=== PATIENT | female | born 1970 | race Caucasian/White ===

== ENCOUNTER 2016-07-13 13:55 | Inpatient (IN) ==
[2016-07-13] MEDS ORDERED: Aspirin 81 MG TAB.CHEW PO ONE (13:57)
[2016-07-13] MEDS ORDERED: *HR* Heparin 5,000 UNIT/ML VIAL IVP PRN (13:57)
[2016-07-13] MEDS ORDERED: *HR* Ticagrelor 90 MG TABLET ONE (13:58)
[2016-07-13] MEDS ORDERED: *HR* Ticagrelor 90 MG TABLET PO ONE (13:59)
[2016-07-13] MEDS ORDERED: *HR* Heparin 5,000 UNIT/ML VIAL ONE (13:59)
[2016-07-13] MEDS ORDERED: Heparin 25,000 UNIT/500 ML D5W 25,000 UNIT/500 ML MLS IVC SCH (14:00)
[2016-07-13] MEDS ORDERED: Aspirin 81 MG TAB.CHEW ONE (14:00)
[2016-07-13] MEDS ORDERED: 0.9 % Sodium Chloride 1,000 ML ONE ×3 (14:00→14:41)
--- NOTE | 2016-07-13 14:02 | Emergency Department Note ---
Disposition Clinical Impression: ST elevation myocardial infarction (STEMI) Qualifiers: Involved coronary artery: unspecified coronary artery Qualified Code(s): I21.3 - ST elevation (STEMI) myocardial infarction of unspecified site Disposition: Admitted As Inpatient Condition: Critical Forms: ED Satisfaction Letter Time of Disposition: 14:05 Chest Pain HPI - General Chief Complaint: ED Chest Pain Stated Complaint: Chest pain Time Seen by Provider: 07/13/16 13:56 Source: patient, EMS Mode of arrival: EMS Limitations: no limitations Vital Signs Reviewed: Yes Nursing Notes Reviewed: Yes - History of Present Illness HPI Narrative: 46-year-old female who comes in complaining of about a 1 hour history of chest pain. EKG was transmitted to [facility] in they diverted the patient here due to inferior changes. EKG sent by [facility] shows ST segment elevation in II, III, and F aVF consistent with inferior SC. Auscultation was obtained with Dr. Car prior to the patient's arrival. STEMI activated at 1349 PM. 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 Duration: constant Onset: during rest Pain Location: substernal, left chest Severity: moderate Quality: tightness, aching Pain Radiation: none Improves with: nothing Worsens with: nothing Context: recent illness Associated symptoms: Reports: nausea, vomiting - Related Data Home Medications Medication Instructions Recorded Confirmed Buprenorphine HCl/Naloxone HCl 1 each SL BID 04/14/15 04/29/16 [Suboxone 8 mg-2 mg Sl Film] Metformin [Glucophage] 500 mg PO BID 06/27/15 04/29/16 Bupropion HCl [Wellbutrin Xl] 300 mg PO QAM 11/22/15 04/29/16 Fluticasone/Salmeterol [Advair 1 each IH BID 11/22/15 04/29/16 100-50 Diskus] Insulin ASPART [NovoLOG] 35 unit SQ TIDWM 11/22/15 04/29/16 Lidocaine [Topicaine] 113 gm TP QAM 11/22/15 04/29/16 Lisinopril [Zestril] 10 mg PO DAILY 11/22/15 04/29/16 Pregabalin [Lyrica] 300 mg PO TID 11/22/15 04/29/16 Previous Rx's Medication Instructions Recorded Acetaminophen [Tylenol] 650 mg PO Q6HR PRN #20 tablet 04/29/16 Allergies Allergy/AdvReac Type Severity Reaction Status Date / Time Iodinated Contrast Media - Allergy Hives Verified 04/29/16 10:48 Oral and [Iodinated Contrast Media - IV Dye] pioglitazone [From Actos] Allergy See Verified 04/29/16 10:48 Comments Sulfa (Sulfonamide Allergy Hives Verified 04/29/16 10:48 Antibiotics) sulfamethoxazole Allergy Itching Verified 04/29/16 10:48 [From Bactrim] trimethoprim [From Bactrim] Allergy Itching Verified 04/29/16 10:48 NSAIDS (Non-Steroidal AdvReac See Verified 04/29/16 10:49 Anti-Inflamma Comments Constitutional: Denies: fever, chills, weakness, weight change Eyes: Denies: eye pain, eye discharge, vision change ENT ED: Denies: ear pain, throat pain, dental pain, hearing loss, epistaxis, congestion, dysphagia Cardiovascular: Reports: chest pain. Denies: palpitations, dyspnea on exertion , edema, syncope Respiratory: Denies: cough, dyspnea, wheezes, hemoptysis, stridor Gastrointestinal: Denies: abdominal pain, nausea, vomiting, diarrhea, constipation, hematemesis, melena, hematochezia Genitourinary: Denies: dysuria, frequency, hematuria, discharge Musculoskeletal: Denies: back pain, neck pain, arthralgia, myalgia Integumentary: Denies: rash, abrasion, lesions Neurological: Denies: headache, weakness, numbness, paresthesias, confusion, abnormal gait, vertigo Psychiatric: Denies: anxiety, depression, suicidal thoughts, homicidal thoughts , auditory hallucinations, visual hallucinations Endocrine: Denies: fatigue Hematological/Lymphatic: Denies: easy bleeding, easy bruising Allergic/Immunologic: Denies: facial swelling, urticaria Chest Pain PMH - Past Medical History Medical history: Reports: non-contributory Surgical history: Reports: other Psychiatric history: Reports: depression 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: Reports: endometriosis, polycystic ovary syndrome - Social History Smoking Status: Current every day smoker Alcohol use: Reports: none Drug use: Reports: none Physical Exam - General Limitations: no limitations General appearance: alert, in no apparent distress - Head Head exam: atraumatic, normocephalic, normal inspection - Eye Eye exam: Present: normal appearance, PERRL, EOMI - Expanded Eye Exam Pupils: Left: reactive - ENT ENT exam: normal exam, normal oropharynx, mucous membranes moist - Expanded ENT Exam External ear exam: Present: normal external inspection Mouth exam: Present: normal external inspection Teeth exam: Present: normal inspection Throat exam: Present: normal inspection - Neck Neck exam: Present: normal inspection, full ROM, trachea midline - Chest Chest inspection: Present: normal inspection, symmetric chest wall rise - Respiratory Respiratory exam: Present: normal lung sounds bilaterally - Cardiovascular Cardiovascular exam: Present: regular rate, normal rhythm, normal heart sounds - Abdominal Exam Abdominal exam: Present: soft, Non-Tender. Absent: tenderness, distention, guarding, rebound, rigidity - Extremities Exam Extremities exam: Present: normal inspection, full ROM. Absent: tenderness, pedal edema - Expanded Upper Extremity Exam Shoulder exam: Present: normal inspection, full ROM Arm exam: Present: normal inspection, full ROM Elbow exam: Present: normal inspection, full ROM Forearm/Wrist exam: Present: normal inspection, full ROM Hand exam: Present: normal inspection, full ROM Vascular exam: Normal: capillary refill, radial pulse - Expanded Lower Extremity Exam Neurovascular/Tendon exam: Absent: motor deficit, sensory deficit, tendon deficit - Back Exam Back exam: Present: normal inspection, full ROM. Absent: tenderness - Neurological Exam Neurological exam: Present: alert, oriented X3 - Expanded Neurological Exam Patient oriented to: Present: person, place, time Coma Scale Eye Opening: Spontaneous Coma Scale Motor Response: Obeys Commands Coma Scale Verbal Response: Oriented Coma Scale Total: 15 - Psychiatric Psychiatric exam: Present: normal affect, normal mood - Skin Skin exam: Present: warm, dry, intact, normal color Course - Consultations Consultation #1: Test with Dr. Lisa Car interventionalists, STEMI activated at 1349. Time: 14:05 Chest Pain - EKG Data EKG attestation: Yes I reviewed and interpreted this EKG. EKG shows normal: sinus rhythm Rate: normal Rhythm: NSR ST segment elevation in: II, III, aVL Interpretation: acute SC (Inferior SC) Heart Score - Score History: Highly Suspicious EKG: Significant ST-Depression Age: 45-65 Risk Factors: Equal/Greater than 3 risk factor or history of atherosclerotic disease Troponin: Less than normal limit HEART Score Total: 7 Critical Care Time Critical Care Time: Yes Total Critical Care Time: 30 Attestation: The high probability of a clinically significant, sudden or life threatening deterioration of the [cardiovascular] system(s) required my full and direct attention, intervention and personal management. The aggregate critical care time was [30] minutes. This time is in addition to time spent performing reported procedures but includes the following: [x] Data Review and interpretation [x] Patient assessment and monitoring of vital signs [x] Documentation [x] Medication orders and management
[2016-07-13 14:09] LABS: Basophils % 0.2 %; Eosinophils # 0.2 K/mcL (0.0-0.6); Eosinophils % 1.7 %; Hematocrit 42.4 % (35.3-44.9); Hemoglobin 13.7 g/dL (11.5-15.4); Immature Granulocytes % 0.4 % (0-4); Lymphocytes # 0.2 K/mcL (0.6-4.6); Lymphocytes % 2.2 %; Mean Corpuscular HGB Conc 32.3 g/dL (31.6-35.5); Mean Corpuscular Volume 86.7 fL (83.0-100.0); Mean Platelet Volume 10.9 fL (9.4-12.4); Monocytes # 0.2 K/mcL (0.0-1.3); Monocytes % 1.6 %; Neutrophils # 9.6 K/mcL (1.6-8.9); Platelet Count 180 K/mcL (140-400); Red Blood Count 4.89 M/mcL (3.82-4.97); Red Cell Distribution Width 13.5 % (11.5-14.5); Segmented Neutrophils % 93.9 %
[2016-07-13] MEDS ORDERED: *HR* Midazolam HCl 5 MG/5 ML VIAL IVP ONE (14:11)
[2016-07-13] MEDS ORDERED: Heparin 1,000 UNITS/500 mL NS 500 ML ONE (14:12)
[2016-07-13] MEDS ORDERED: *HR* FentaNYL (PF) 250 MCG/5 ML VIAL ONE (14:12)
[2016-07-13] MEDS ORDERED: Nitroglycerin 1,000 MCG/10 ML VIAL IV ONE (14:12)
[2016-07-13] MEDS ORDERED: *HR* Heparin 10,000 UNIT/10 ML VIAL ONE (14:12)
[2016-07-13 14:19] LABS: INR 1.1; Prothrombin Time 12.1 Seconds (9.4-12.1)
[2016-07-13 14:22] LABS: Activated Partial Thrombo Time 30.3 Seconds (26.0-36.0); Calcium 8.3 mg/dL (8.6-10.8); Potassium 4.6 mEq/L (3.5-4.5)
[2016-07-13] MEDS ORDERED: Ondansetron 4 MG/2 ML VIAL IVP ONE (14:29)
[2016-07-13] MEDS ORDERED: methylPREDNISolone 125 MG/2 ML VIAL ONE (14:31)
--- NOTE | 2016-07-13 15:46 | Invasive Diagnostic Lab Proc ---
Name: Sandi Calderón Date of Study: 07/13/2016 Date: 1970 Ht: 66.9in Medical Record#: [id number] Age: 46 Wt: 359.35lb Gender: Female BSA: 2.59 Order #: [id number] BMI: 56.4 Physicians Procedure Physician: Lisa Car MD, [facility] Referring MD: Referring MD: Staff Name Position Time In Alton Herrera RN Monitor 02:52 PM Vero Christensen RT (R) Scrub 02:52 PM Theron Jackson RN Nut Roaster Helper 02:52 PM Indications Indication STEMI Procedures Performed Procedure L HRT ARTERY/VENTRICLE ANGIO PRQ CARD REVASC NJ 1 VSL Pre-Procedure Checklist Informed consent is complete signed and on chart. H\\T\\P is on chart. ID band is on and ID verified with patient. Pt not NPO for procedure and MD aware. The procedure was described for the patient and questions were answered. Blood Pressure: 96/52 ECG is on chart. Rhythm: Sinus Tachycardia Plan of Care Patient will tolerate the procedure without complications. Adequate level of comfort will be maintained. Hemodynamics will remain stable Patient will recover from procedure without complications. Respiratory function will be maintained. Cardiac rhythm will remain stable. Patient temperature will be maintained. Patient and/or family have verbalized understanding of the procedure. Patient Education Chief Complaint/Reason for Test: Cardiac Cath Developmental Category: Adult (18-64 years) Developmentally Appropriate for Age: Yes Learning Barriers: None Education Needs: Procedure Education Method: Verbal Information Taught: Cardiac Cath Educational Evaluation: Able to repeat information Intravenous Access Time IV Size Location DC'd Fluid/Drip Rate Units RN 02:22 PM 18g 1 1/4" Patent On Arrival Lt Antecubital 0.9NaCl 25 ml/hr Theron Jackson RN 02:22 PM 18g 1 1/4" Patent On Arrival Rt Antecubital Theron Jackson RN Allergies BACTRIM Sulfa (Sulfonamide Antibiotics) pioglitazone Iodinated Contrast Media - IV Dye NSAIDS (Non-Steroidal Anti-Inflamma Iodinated Contrast Media - Oral and Vital Signs Time BP (mmHg) HR (bpm) O2 Sat. RR (bpm) LOC / 101 95 % 18 5 = Fully awake and oriented or at pre-proc level 02:53 PM / % 5 = Fully awake and oriented or at pre-proc level 02:53 PM / % 4 = Oriented but drowsy 03:08 PM / % 5 = Fully awake and oriented or at pre-proc level 02:55 PM 96 / 52 91 93 % 8 03:00 PM 107 / 63 90 100 % 21 03:05 PM 114 / 58 85 100 % 21 03:16 PM 133 / 72 91 100 % 20 03:21 PM 95 / 55 92 100 % 26 Procedural Medications Time Medication Dose Units Method Given By 02:52 PM Oxygen 4 L/min nasal cannula Theron Jackson RN 02:52 PM Versed 1 mg Intravenous [place], Theron VAZQUEZ 02:52 PM Fentanyl 25 mcg Intravenous [place], Theron RN 02:52 PM Benadryl 25 mg Intravenous [place], Theron VAZQUEZ 02:52 PM Lidocaine 2% 18 ml Subcutaneous Lisa Car MD, FAC 03:00 PM Heparin 3000 units Intravenous [place]vin[place], Theron VAZQUEZ 03:04 PM Fentanyl 25 mcg Intravenous [place], Theron VAZQUEZ 03:07 PM Nitroglycerin 200 mcg Intracoronary Lisa Car MD, FACC 03:10 PM Fentanyl 25 mcg Intravenous [place], Theron VAZQUEZ 03:13 PM Reopro Bolus: 20.6 ml Intravenous SrinathornTheron cazares RN ASA Classification: Emergent Procedure: ASA score is assumed Leon Score Preprocedure Postprocedure Activity 2- Moves 4 extremities sustained head lift Activity 2- Moves 4 extremities sustained head lift Circulation 2- SBP +/= 20 points of pre-anesthetic level Circulation 2- SBP +/= 20 points of pre-anesthetic level Consciousness 2- Awake and alert oriented x 3 Consciousness 2- Awake and alert oriented x 3 O2 Saturation 2- Able to maintain O2 satruation of 92% on room air O2 Saturation 2- Able to maintain O2 satruation of 92% on room air Respiratory 2- Able to deep breathe and cough well Respiratory 2- Able to deep breathe and cough well Total Score 10 Total Score 10 Contrast Agent: Isovue Diagnostic Contrast: 147 ml Total Contrast: 147 ml Fluoro Dose: 867 mGy Activated Clotting Time Time Seconds to Clot 02:59 PM 152 03:00 PM 152 03:16 PM 179 Procedure Log Time Note Enter By 02:26 PM CathStat 02:42 PM Pt arrived to medical lab assistant 2 at 14:42 csmith 02:49 PM Vitals capture started with the following parameters, Patient=Adult, Interval=5 min, Initial Adowctpw=142 mmHg, Deflation Rate=5 mmHg, Cuff placed on Left Arm 02:51 PM Recorded ECG: HR=91 Condition=Condition 1 02:51 PM NIBP STAT measurement started. 02:51 PM Vitals capture stopped. 02:52 PM Alton Herrera RN Position: Monitor Time in: 14:52 csmith 02:52 PM Vero Christensen RT (R) Position: Scrub Time in: : csmith 02:52 PM Theron Jackson RN Position: Nut Roaster Helper Time in: : csmith 02:52 PM Patient charges- Angio tray pack, Navilyst 3mm J, Pulse Oximetry and ACIST tubing and transducer csmith 02:52 PM Hair removed from procedure site in holding area using clippers. Right groin prepped with Chloraprep by Alton Herrera RN, safety strap applied then patient was draped. Skin intact. csmith 02:52 PM Meet and greet completed csmith 02:52 PM Sign in performed according to hospital policy. csmith 02:52 PM Procedure start 14:52 csmith 02:52 PM Time: 14:52 Oxygen on at 4 L/min per nasal cannula by Theron Jackson RN csmith 02:52 PM Time: 14:52 Versed 1 mg Intravenous Given by Theron Jackson RN csmith 02:52 PM Time: 14:52 Fentanyl 25 mcg Intravenous Given by Theron Jackson RN csmith 02:52 PM Time: 14:52 Benadryl 25 mg Intravenous Given by Theron Jackson RN csmith 02:52 PM Time: 14:52 18 ml Lidocaine 2% to right groin Subcutaneous Given by Lisa Car MD, [facility] csmith 02:53 PM Time: 14:53 Patient comfortable and pain free: Yes csmith 02:53 PM Time: 14:53LOC: 5 = Fully awake and oriented or at pre-proc level csmith 02:54 PM Access obtained by percutaneous puncture. 6Fr 10cm Terumo Harrison sheath placed in right Femoral artery. [id number] csmith 02:54 PM 0.035 145cm Navilyst 3mmJ wire [id number] csmith 02:54 PM Vitals capture started with the following parameters, Patient=Adult, Interval=5 min, Initial Pkrzqbim=297 mmHg, Deflation Rate=5 mmHg, Cuff placed on Left Arm 02:54 PM Pressure channel 1 zeroed. 02:55 PM HR=91 bpm, NIBP=96/52 mmhg, SpO2=93.0 %, Resp=8 B/min, Comment=sr s/st elevation 02:57 PM LCA angiography performed in multiple views. csmith 02:57 PM Catheter removed csmith 02:57 PM 6Fr JR 4 Runway guide catheter was used to cannulate the PCI vessel successfully. reused? No csmith 02:58 PM Pressure channel 1 zeroed. 02:59 PM Recorded Pressure: Ao, HR=90, Condition=Condition 1 (Aorta) Ao 96/54/70 02:59 PM RCA angiography performed in multiple views. csmith 02:59 PM Lesion found in Mid RCA. Pre Stenosis: 99 Pre VIOLET Flow: 2: Partial Flow/Perfusion (> 1 but < 3) csmith 02:59 PM At 14:59 the ACT was 152 seconds. csmith 03:00 PM HR=90 bpm, NFVT=040/63 mmhg, QzW6=804.0 %, Resp=21 B/min, Comment=sr s/st elevation 03:00 PM Time: 15:00 Heparin 3000 units Intravenous Given by Theron Jackson RN IVP csmith 03:01 PM Coronary Dominance: right csmith 03:01 PM 2.5 mm x 15 mm Emerge Monorail balloon across target lesion- successful. reused? No csmith 03:02 PM Balloon inflated @ 10 zane for 20 seconds csmith 03:04 PM Recorded Pressure: Ao, HR=91, Condition=Condition 1 (Aorta) Ao 99/55/71 03:04 PM Time: 15:04 Fentanyl 25 mcg Intravenous Given by Theron Jackson RN csmith 03:04 PM Balloon catheter removed intact. csmith 03:04 PM 3.5mm x 38mm Synergy bioabsorbable stent across target lesion- successful Lot #[id number] csmith 03:05 PM HR=85 bpm, YHPZ=096/58 mmhg, MqF1=253.0 %, Resp=21 B/min, Comment=sr s/st elevation 03:05 PM Stent deployed @ 12 zane for 30 seconds csmith 03:06 PM Stent balloon reinflated @ 16 zane for 20 seconds csmith 03:07 PM Time: 15:07 Nitroglycerin 200 mcg Intracoronary Given by Lisa Car MD, FACC csmith 03:08 PM Time: 14:53LOC: 4 = Oriented but drowsy csmith 03:08 PM Time: 14:53 Patient comfortable and pain free: Yes csmith 03:08 PM Stent delivery system removed intact. csmith 03:09 PM Wire removed intact. csmith 03:10 PM 5Fr Pigtail catheter inserted over the wire DNC csmith 03:10 PM Time: 15:10 Fentanyl 25 mcg Intravenous Given by Theron Jackson RN csmith 03:10 PM Vitals capture stopped. 03:10 PM Pressure channel 1 zeroed. 03:10 PM Recorded Pressure: LV, HR=92, Condition=Condition 1 (Left Ventricle) LV 86/25/27 03:11 PM Catheter selectively placed in left ventricle csmith 03:11 PM Bolus angiogram of left Ventricle complete: 8 ml/sec for a total of 24 mls csmith 03:12 PM Recorded Pressure: LV, Ao, HR=90, Condition=Condition 1 (Left Ventricle) LV 107/47/59, (Aorta) Ao 83/60/70 03:12 PM Wire removed csmith 03:12 PM Catheter removed csmith 03:13 PM Bolus angiogram of right Femoral complete: 4 ml/sec for a total of 7 mls csmith 03:13 PM act drawn and running csmith 03:14 PM Time: 15:13 Reopro Bolus: 20.6 ml Intravenous Given by Theron Jackson RN IVP csmith 03:15 PM Sheath exchanged for a 6 Fr 23 cm Cordis Ping sheath [id number] csmith 03:16 PM HR=91 bpm, DJHY=619/72 mmhg, XsO7=783.0 %, Resp=20 B/min, Comment=sr s/st elevation 03:16 PM At 15:16 the ACT was 179 seconds. csmith 03:16 PM Procedure completed at 15:16 csmith 03:17 PM Sign out completed: Radiation Dose 867 mGy Fluoro Time: 3.9 Isovue 370 - 200ml contrast 147 ml given by Lisa Car MD, [facility]. Complications: NoneCardiac Rehab Consult needed: YesConfirmed administered medications: Yes csmith 03:17 PM Isovue 370 - 200ml,1 Bottle(s) used. csmith 03:17 PM Sheath left in place to be pulled on floor/holding area csmith 03:17 PM Post ECG NSR csmith 03:17 PM Post Blood Pressure 133/72 csmith 03:21 PM HR=92 bpm, NIBP=95/55 mmhg, CzO5=292.0 %, Resp=26 B/min, Comment=sr 03:23 PM Information taught Cardiac Cath csmith 03:23 PM Education needs Responsibilities of Patient in Care csmith 03:23 PM Learning barriers :None csmith 03:23 PM Education Methods Verbal csmith 03:23 PM Education evaluation Able to repeat information csmith 03:23 PM Time: 15:08 Patient comfortable and pain free: Yes csmith 03:23 PM Time: 15:08LOC: 5 = Fully awake and oriented or at pre-proc level csmith 03:23 PM Site status No bleeding/hematoma - Rt Groin as reported by Vero Christensen RT (R) at 15:23 csmith 03:23 PM Plavix, Effient or Brilinta given No - given in ED csmith 03:23 PM Delay to floor No csmith 03:29 PM Lesion found in Proximal LAD. Pre Stenosis: 30 Pre VIOLET Flow: 3: Complete and Brisk Flow/Perfusion csmith 03:29 PM Lesion found in Proximal Circumflex. Pre Stenosis: 30 Pre VIOLET Flow: csmith 03:29 PM Lesion found in 1st Marginal. Pre Stenosis: 30 Pre VIOLET Flow: 3: Complete and [facility] Com[facility] Complication None Hemodynamics Pressures Site Systolic/A Wave Diastolic/V Wave Mean AO 96 54 70 AO 99 55 71 LV 86 25 27 LV 107 47 59 AO 83 60 70 Post Procedure Information Blood Pressure: 133/72 mmHg Rhythm: NSR Post procedural instructions were given Closure Device Time Device Success/Fail Mechanical Compression Successful Site Checks Time Location Status Staff Sheath In? Note 03:23 PM Rt Groin No bleeding/hematoma Vero Christensen RT (R) Pulses Time Site Pre-Procedure Post-Procedure Note 07/13/2016 2:42:00 PM unable to assess Updated by Alton Herrera RN on 07/13/2016 3:41:19 PM electronically signed on 07/13/2016 3:41:49 PM with status of Final
[2016-07-13] MEDS ORDERED: Nitroglycerin 0.4 MG TAB.SUBL SL PRN (15:57)
[2016-07-13] MEDS ORDERED: Dextrose Gel 15 GM PO PRN ×2 (16:05)
[2016-07-13] MEDS ORDERED: D5% in Water 1,000 ML IV PRN (16:05)
[2016-07-13] MEDS ORDERED: *HR* Dextrose 50 % in Water (Syg) 50 ML SYRINGE IVP PRN (16:05)
--- NOTE | 2016-07-13 16:29 | Cardiology History & Physical ---
Date of Encounter: 07/13/16 Time of Encounter: 15:00 Assessment and Plan (1) ST elevation myocardial infarction (STEMI) Current Visit: Yes Status: Acute Pt is currently experiencing acute inferior STEMI. Discussed with pt proceeding with emergent LHC and probable PCI. All risks/benefits discussed with pt. Agreeable to proceed. The assessment and plan as outlined above was discussed with the patient and/or family members who expressed understanding and agreement. All questions were answered. 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 Calderón is a 46 year old female with CAD, HTN, hyperlipidemia, DM, tobacco use, morbid obesity presents to [place] ED with CP. Pt in baseline state of health until 2 hours LUMBER STRAIGHTENED when had acute onset of CP, L arm pain. Associated with n/v. Contacted EMS- EKG consistent with acute inferior STEMI. Prior catheterization in 2010- nonobstructive plaque disease, normal EF. Past Med Surg Social Fam HX - Past Medical History Source: patient Medical history: coronary artery disease, diabetes, hyperlipidemia, hypertension , venous stasis Psychiatric history: depression - Past Surgical History Surgical History: no surgical history - Social History Smoking Status: Current every day smoker Smokeless Tobacco Status: No Alcohol use: none Drug use: none - Family History Mother Living Status: Age at : 69 Hx Family Cardiac Disorders: Yes (Congestive heart failure) Father Living Status: Age at : 41 Cause of : IA Medications and Allergies Buprenorphine HCl/Naloxone HCl [Suboxone 8 mg-2 mg Sl Film] 1.5 film SL BID [History] Metformin [Glucophage] 1,000 mg PO BID 06/27/15 [History] Bupropion HCl [Wellbutrin Xl] 300 mg PO QAM 11/22/15 [History] Fluticasone/Salmeterol [Advair 100-50 Diskus] 1 puff IH BID 11/22/15 [History] Insulin ASPART [NovoLOG] 35 unit SQ TIDWM 11/22/15 [History] Lisinopril [Zestril] 10 mg PO DAILY 11/22/15 [History] Pregabalin [Lyrica] 300 mg PO BID 11/22/15 [History] Albuterol Sulfate [Proair Hfa] 1 - 2 puff IH Q4H PRN 07/13/16 [History] Furosemide [Lasix] 40 mg PO DAILY PRN 07/13/16 [History] Lidocaine [Lidocaine] 1 - 4 patch TP AD 07/13/16 [History] Liraglutide [Victoza 2-Lavon] 1.2 mg SQ DAILY 07/13/16 [History] Simvastatin [Zocor] 80 mg PO DAILY 07/13/16 [History] Tiotropium [Spiriva] 18 mcg IH DAILY 07/13/16 [History] Allergies Iodinated Contrast Media - Oral and [Iodinated Contrast Media - IV Dye] Allergy (Verified 04/29/16 10:48) Hives pioglitazone [From Actos] Allergy (Verified 04/29/16 10:48) See Comments swelling all over Sulfa (Sulfonamide Antibiotics) Allergy (Verified 04/29/16 10:48) Hives sulfamethoxazole [From Bactrim] Allergy (Verified 04/29/16 10:48) Itching trimethoprim [From Bactrim] Allergy (Verified 04/29/16 10:48) Itching NSAIDS (Non-Steroidal Anti-Inflamma Adverse Reaction (Verified 04/29/16 10:49) See Comments Has kidney disease ROS unobtainable: other (emergency) All Systems Review: A 10-system review of systems was performed and is negative for pertinent findings except as documented above in the HPI. - Cardiovascular Cardiovascular: as per HPI Physical Examination Vital Signs, Last 4 Hours Temp Pulse Resp BP Pulse Ox 07/13/16 15:54 90 14 126/77 98 07/13/16 15:53 90 07/13/16 14:38 0 F L 18 112/88 General: Conversant, Other (moderate distress, morbid obesity) HEENT: Atraumatic, Normocephaly, Mucus Membranes Moist Neck: No JVD, Normal carotid pulses Cardiac: Reg Rate and Rhythm, Normal S1 and S2, No Murmur Lungs: Normal Breath Sounds, No Wheeze, Rales, Rhonchi Neuro: Alert and responsive, No focal deficits noted Abdomen: Soft, Non-Tender Skin: Other (chronic venous stasis changes of LE) Musculoskeletal: No Chest Wall Tenderness Extremities: No Clubbing, No Cyanosis, No Edema, Normal Pulses Results 07/13/16 14:00 07/13/16 14:00 - VTE Reasons for not Prescribing Prophylaxis: Medical contraindication
[2016-07-13] MEDS: Budesonide/Formoterol 80/4.5 MDI IH SCH ×2 (16:32→22:29)
--- NOTE | 2016-07-13 16:42 | Invasive Diagnostic Lab ---
Name: Sandi Calderón Date of Study: 07/13/2016 Date: 1970 Ht: 170.0 cm /66.9 in Medical Record#: [id number] Age: 46 Wt: 163. kg / 359.35 lb Account/Order#: [id number] Gender: Female BSA: 2.59 Order #: [id number] Fluoro Dose: 867 mGy BMI: 56.4 Procedure Physician: Lisa Car MD, [facility] Referring MD: Referring MD: Procedures Performed: LEFT HEART CATH PCI of Acute NE Indications: STEMI Impressions: There is severe one vessel coronary artery disease. The left ventricle is normal and has normal contractility EF 55% Patient had successful PTCA/Drug-Eluting Stent placement in the mid RCA. Recommendations: DAPT for one year minimum uninterrupted. Optimal medical therapy of patient's disease. Aggressive risk factor modification. History/Risk Factors: arthritis COPD DM severe morbid obesity HPTN hyperlipidemia depression cellulitis CKD Smoker Drug abuse Procedure Access obtained in the right Femoral artery by percutaneous puncture Patient had successful PTCA/Drug-Eluting Stent placement in the mid RCA. Complications: None Contrast: Isovue 147ml Closure Device: Mechanical Compression Hemodynamics: Pressures Site Systolic/ A Wave Diastolic/ V Wave End Diastolic/ Mean HR AO 96 54 70 90 AO 99 55 71 91 LV 86 25 27 92 LV 107 47 59 91 AO 83 60 70 89 LV Ventriculography Ejection Method: LV Gram Ejection Fraction: 55% Wall Motion: BUENROSTRO Anterobasal Normal Anterolateral Normal Apical: Normal Inferoapical Normal Inferobasal Normal Coronary Dominance: right Lesion Findings/Interventions * Left Main Coronary Artery The LMCA is angiographically free of disease. * Left Anterior Descending There is a 30% stenosis in the Proximal LAD. The lesion has a VIOLET flow of 3. * Circumflex There is a 30% stenosis in the Proximal Circumflex.The lesion has a VIOLET flow of 3. There is a 30% stenosis in the 1st Marginal. The lesion has a VIOLET flow of 3. * Right Coronary Artery There is a 36 mm long, 99% stenosis in the Mid RCA. The lesion has a VIOLET flow of 1 and has thrombus present. An intervention was performed on the Mid RCA with a final stenosis of 0%. There were no lesion complications. The final VIOLET flow was 3. Interventional Device(s) Vessel Segment Type Name Diameter (mm) Length (mm) Mid RCA balloon Emerge Monorail 2.5 15 Mid RCA bioabsorbable stent Synergy 3.5 38 Updated by Alton Herrera RN on 07/13/2016 3:38:42 PM Lisa Car MD, FAC electronically signed on 07/13/2016 4:38:37 PM with status of Final
[2016-07-13 16:44] LABS: Hemoglobin A1C 11.6 %
[2016-07-13] MEDS ORDERED: Buprenorphine Hcl/Naloxone Hcl [Suboxone 8 Mg-2 Mg S SL SCH (21:00)
[2016-07-13] MEDS: Pregabalin 75 MG CAPSULE PO SCH (21:01)
[2016-07-13] MEDS: Insulin LISPRO 300 UNITS/3 ML VIAL SQ SCH ×2 (21:03→22:40)
[2016-07-13] MEDS: Buprenorphine Hcl/Naloxone Hcl [Suboxone 8 Mg-2 Mg S SL SCH (22:38)
[2016-07-14 04:30] LABS: Basophils % 0.1 %; Hematocrit 39.2 % (35.3-44.9); Hemoglobin 12.7 g/dL (11.5-15.4); Immature Granulocytes % 0.5 % (0-4); Lymphocytes # 0.4 K/mcL (0.6-4.6); Lymphocytes % 2.9 %; Mean Corpuscular HGB Conc 32.4 g/dL (31.6-35.5); Mean Corpuscular Hemoglobin 27.9 pg (28.0-33.3); Mean Platelet Volume 11.1 fL (9.4-12.4); Monocytes # 0.3 K/mcL (0.0-1.3); Monocytes % 2.2 %; Neutrophils # 13.9 K/mcL (1.6-8.9); Platelet Count 166 K/mcL (140-400); Red Blood Count 4.56 M/mcL (3.82-4.97); Red Cell Distribution Width 13.7 % (11.5-14.5); Segmented Neutrophils % 94.3 %
[2016-07-14 07:25] LABS: Calcium 7.6 mg/dL (8.6-10.8); Chol/HDL Ratio 7.4 (0-4.9)
[2016-07-14 07:45] LABS: Thyroid Stimulating Hormone 0.833 mcIU/mL (0.350-4.840)
[2016-07-14] MEDS: BuPROPion XL (24 HR) 150 MG TABLET PO SCH (07:58)
[2016-07-14] MEDS: Aspirin 81 MG TAB.CHEW PO SCH (07:58)
[2016-07-14] MEDS: Pregabalin 75 MG CAPSULE PO SCH ×2 (07:58→21:08)
[2016-07-14] MEDS: Insulin LISPRO 300 UNITS/3 ML VIAL SQ SCH ×4 (08:02→17:16)
[2016-07-14] MEDS ORDERED: Insulin LISPRO 300 UNITS/3 ML VIAL SQ SCH ×2 (08:02→21:00)
--- NOTE | 2016-07-14 08:06 | Cardiology Progress Note ---
Date of Encounter: 07/14/16 Time of Encounter: 07:40 Assessment and Plan (1) ST elevation myocardial infarction (STEMI) Current Visit: Yes Status: Acute Presented to the ED as inferior STEMI s/p PTCA/ARSLAN to mRCA; otherwise mild, non- obstructive CAD. Peak troponin=26.74 Cardiac rehab consulted. Reports chest discomfort has nearly resolved. No issues overnight. Right groin cath site stable. May transfer out of ICU later today if electrolyte abnormalities improve. Continue DAPT (asa + plavix) for at least 1 year, uninterrupted. Continue statin. Will start betablocker and hold ACEi in light of JABARI on CKD. Post PCI guidelines discussed including restrictions and care of site. Risk factor modification emphasized including importance of smoking cessation and improved glycemic control. Anticipate discharge Friday or Friday depending on clinical course. Qualifiers: Involved coronary artery: right coronary artery Qualified Code(s): I21.11 - ST elevation (STEMI) myocardial infarction involving right coronary artery (2) DM2 (diabetes mellitus, type 2) Current Visit: Yes Status: Chronic Hx of poorly controlled DMII. Metformin on hold for at least 48 hours post LHC. Sliding scale insulin adjusted to high coverage scale. Blood glucose >600 this AM, will consult Hospitalist service for further recommendations. Qualifiers: Diabetes mellitus complication status: with unspecified complications Diabetes mellitus half-way insulin use: with half-way use Qualified Code(s) : E11.8 - Type 2 diabetes mellitus with unspecified complications; Z79.4 - senior living (current) use of insulin (3) Hyperkalemia Current Visit: Yes Status: Acute K=6.0 this AM, lab confirmed with re-draw. Will give Kayexalate x1 dose now. Start IVF at 100 mL/hr. Recheck BMP at 12 noon. (4) CKD (chronic kidney disease) stage 3, GFR 30-59 ml/min Current Visit: Yes Status: Chronic Hx of CKD-3. SCr elevated from baseline this AM. Will start IVF at 100 mL/hr. Avoid nephrotoxins. Hold ACEi for now. (5) Tobacco use Current Visit: Yes Status: Chronic Reports 2ppd smoking history. Recently less than 1ppd for the past 4-6 months. Will start nicotine patch. Smoking cessation counseling provided, time spent = 5 minutes. Discussion w patient/family: The assessment and plan as outlined above was discussed with the patient and/or family members who expressed understanding and agreement. All questions were answered. Thank you for involving us in the care of your patient. Please call with any questions. The patient was discussed and reviewed with Dr. Jude Car who agrees with the plan as stated above. Subjective Principal diagnosis: Inferior STEMI Interval history: Seen and examined this morning at bedside. Reports chest discomfort has significantly improved this AM. Echocardiogram being completed at bedside. She has no other complaints this morning. Objective Vital Signs, Last 4 Hours Temp Pulse Resp BP Pulse Ox 07/14/16 06:31 94 16 131/68 94 L 07/14/16 05:35 98.4 F 07/14/16 05:15 91 17 112/72 92 L 07/14/16 05:01 92 General: Conversant, No Apparent Distress HEENT: Atraumatic, Normocephaly, Mucus Membranes Moist Cardiac: Reg Rate and Rhythm, Normal S1 and S2 Lungs: Normal Breath Sounds Neuro: Alert and responsive Abdomen: Soft Extremities: No Edema, Normal Pulses Other: Right groin cath site stable: dressing intact. Site soft, no hematoma. +2 PT/DP pulses. Results 07/14/16 03:48 07/14/16 06:26 Lab Results 07/13/16 07/13/16 07/14/16 16:28 22:57 03:48 WBC 14.8 H Hgb 12.7 Hct 39.2 Plt Count 166 Sodium Potassium Chloride Carbon Dioxide BUN Creatinine Glucose Calcium Troponin I 2.68 H* 26.74 H* TSH 07/14/16 06:26 WBC Hgb Hct Plt Count Sodium 128 L D Potassium 6.0 H D Chloride 98 Carbon Dioxide 19 BUN 37 H D Creatinine 2.02 H Glucose 666 H* Calcium 7.6 L Troponin I TSH 0.833 Active Medications Acetaminophen (Tylenol) 500 mg PO Q6HR PRN PRN Reason: Mild Pain Stop: 01/12/17 15:58 Albuterol Sulfate (Albuterol Inhaler) 2 puff IH Q4H PRN PRN Reason: Shortness Of Breath Stop: 01/12/17 15:55 Aspirin (Aspirin) 81 mg PO DAILY [facility] Stop: 01/13/17 09:01 Last Admin: 07/14/16 07:58 Dose: 81 mg Atorvastatin Calcium (Lipitor) 80 mg PO HS [facility] Stop: 01/12/17 21:01 Last Admin: 07/13/16 21:02 Dose: 80 mg Budesonide/Formoterol Fumarate (Symbicort) 2 puff IH BIDR [facility] PRN Reason: Protocol Stop: 01/12/17 16:31 Last Admin: 07/13/16 22:29 Dose: 2 puff Bupropion HCl (Wellbutrin Xl) 300 mg PO QAM [facility] Stop: 01/13/17 09:01 Last Admin: 07/14/16 07:58 Dose: 300 mg Clopidogrel Bisulfate (Plavix) 75 mg PO DAILY [facility] Stop: 01/13/17 09:01 Last Admin: 07/14/16 07:58 Dose: 75 mg Dextrose/Water (Dextrose 50% (Syg)) 25 ml IVP AD PRN PRN Reason: Hypoglycemia Stop: 01/12/17 16:06 Glucagon (Glucagen) 1 mg IM ONCE PRN PRN Reason: Hypoglycemia Stop: 01/12/17 16:06 Glucose (Gluctose) 15 gm PO ONCE PRN PRN Reason: Hypoglycemia Stop: 01/12/17 16:06 Glucose (Gluctose) 30 gm PO ONCE PRN PRN Reason: Hypoglycemia Stop: 01/12/17 16:06 Dextrose (Dextrose 5%) 1,000 mls @ 100 mls/hr IV CONT PRN PRN Reason: HYPOGLYCEMIA Stop: 01/12/17 16:06 Sodium Chloride (0.9 % Sodium Chloride) 1,000 mls @ 100 mls/hr IVC .Q10H [facility] Stop: 01/13/17 08:16 Insulin Human Lispro (Humalog) 35 units SQ TIDWM [facility] Stop: 01/12/17 17:01 Last Admin: 07/14/16 08:02 Dose: 35 units Insulin Human Lispro (Humalog) 0 units SQ TIDAC [facility] PRN Reason: Protocol Stop: 01/12/17 16:31 Lidocaine HCl (Lidoderm 5% Patch) 1 each TP AD [facility] Stop: 01/12/17 16:01 Last Admin: 07/13/16 20:59 Dose: 1 each Lisinopril (Zestril) 10 mg PO DAILY [facility] PRN Reason: Protocol Stop: 01/13/17 09:01 Last Admin: 07/14/16 07:58 Dose: 10 mg Nitroglycerin (Nitroglycerin) 0.4 mg SL Q5MIN PRN PRN Reason: Chest Pain Stop: 01/12/17 15:58 Pharmacy Profile Note (Patient Taking Own Medication) 1.2 each SQ DAILY [facility] Stop: 01/13/17 09:01 Pharmacy Profile Note (Patient Taking Own Medication) 1 each SL TID [facility] Stop: 01/12/17 21:01 Last Admin: 07/13/16 22:38 Dose: 1 each Pregabalin (Lyrica) 300 mg PO BID [facility] Stop: 01/12/17 21:01 Last Admin: 07/14/16 07:58 Dose: 300 mg Sodium Polystyrene Sulfonate (Kayexalate) 30 gm PO ONCE ONE Stop: 07/14/16 08:15 Tiotropium [place] (Spiriva) 18 mcg IH DAILY [facility] PRN Reason: Protocol Stop: 01/13/17 09:01 - Imaging and Cardiology Chest Xray: report reviewed Echo: pending Cardiac cath: report reviewed Other Results: 12 hour tele: avg HR=91 SR. - EKG Interpretation EKG results cardiology: personally reviewed - VTE Reasons for not Prescribing Prophylaxis: Medical contraindication Consult Discharge Plan - Plan Referrals: NO,PCP [Primary Care Provider] -
[2016-07-14] MEDS ORDERED: Perflutren Lipid Microsphere 1.3 ML in 0.9 % Sodium Chloride 8.7 ML IVP ONE (08:24)
[2016-07-14] MEDS ORDERED: Perflutren Lipid Microsphere 2 ML VIAL ONE (08:25)
[2016-07-14] MEDS: Buprenorphine Hcl/Naloxone Hcl [Suboxone 8 Mg-2 Mg S SL SCH ×3 (08:29→21:32)
[2016-07-14] MEDS: Liraglutide [Victoza 2-Pak] 1.2 MG SQ SCH (08:29)
[2016-07-14] MEDS: 0.9 % Sodium Chloride 1,000 ML IVC SCH ×2 (08:38→17:19)
[2016-07-14 08:50] LABS: VBG PH 7.36 pH Units (7.32-7.42)
--- NOTE | 2016-07-14 09:23 | Internal Medicine Consult Note ---
Date of Encounter: 07/14/16 Time of Encounter: 09:15 - Assessment and Plan (1) DM2 (diabetes mellitus, type 2) Current Visit: Yes Status: Chronic Assessment and plan: Uncontrolled blood sugars. Currently greater than 400 despite receiving short- acting insulin. Will stop subcutaneous insulin products. Start IV insulin and monitor blood sugars closely. Keep nothing by mouth. Once blood sugars are less than 200, will switch over to a basal bolus regimen. She will then be placed on diabetic diet. 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 Agree with gentle hydration. Will follow renal function. Patient also having severe hyperkalemia. She has received Kayexalate for this. (3) ST elevation myocardial infarction (STEMI) Current Visit: Yes Status: Acute Assessment and plan: Status post-PCI and drug-eluting stent. Chest pain-free at this time. Continue dual antiplatelet therapy and statins and beta maxwell per cardiology recommendations. Qualifiers: Involved coronary artery: right coronary artery Qualified Code(s): I21.11 - ST elevation (STEMI) myocardial infarction involving right coronary artery Internal Medicine - CN: HPI - Data of Consult Patient: new to practice Requesting Physician: Lisa Car - Consult Narrative Reason for consult: Diabetes management History of present illness: Ms. Calderón is a 46 year old female with history of obesity, diabetes mellitus type 2, coronary artery disease, hypertension is admitted here for an acute ST elevation [place]. She underwent cardiac catheterization with PCI and drug-eluting stent to right coronary artery. She is on dual antiplatelet therapy. She does not complain of any chest pain at this time. Her diabetes has been uncontrolled and this morning her blood sugar was greater than 600. As such we were consulted to help with management. She has chronic history of type 2 diabetes since age 13. She is on metformin, Victoza and aspart insulin at home. She says her blood sugars have been better controlled these days and she is not had such high blood sugars for a long time. She denies any night sweats , chills, headache or shortness of breath. No palpitations either. She had difficulty passing urine and blood yesterday but has finally been passing urine since this morning. Past Med Surg Social Fam HX - Past Medical History Attestation: Yes The following information was validated with the patient. Source: patient Medical history: coronary artery disease, diabetes, hyperlipidemia, hypertension , venous stasis Psychiatric history: depression - Past Surgical History Surgical History: no surgical history - Social History Smoking Status: Current every day smoker Smokeless Tobacco Status: No Alcohol use: none Drug use: none - Family History Father Living Status: Age at : 41 Cause of : ME Mother Living Status: Age at : 69 Hx Family Cardiac Disorders: Yes (Congestive heart failure) Hx Family Endocrine Disorder: Yes (Diabetes, morbid obesity) All systems: reviewed and no additional remarkable complaints except as stated Review of systems: A 13 point review of systems was completed and was negative except as above. Internal Medicine - CN: Meds Buprenorphine HCl/Naloxone HCl [Suboxone 8 mg-2 mg Sl Film] 1.5 film SL BID [History] Metformin [Glucophage] 1,000 mg PO BID 06/27/15 [History] Bupropion HCl [Wellbutrin Xl] 300 mg PO QAM 11/22/15 [History] Fluticasone/Salmeterol [Advair 100-50 Diskus] 1 puff IH BID 11/22/15 [History] Insulin ASPART [NovoLOG] 35 unit SQ TIDWM 11/22/15 [History] Lisinopril [Zestril] 10 mg PO DAILY 11/22/15 [History] Pregabalin [Lyrica] 300 mg PO BID 11/22/15 [History] Albuterol Sulfate [Proair Hfa] 1 - 2 puff IH Q4H PRN 07/13/16 [History] Furosemide [Lasix] 40 mg PO DAILY PRN 07/13/16 [History] Lidocaine [Lidocaine] 1 - 4 patch TP AD 07/13/16 [History] Liraglutide [Victoza 2-Lavon] 1.2 mg SQ DAILY 07/13/16 [History] Simvastatin [Zocor] 80 mg PO DAILY 07/13/16 [History] Tiotropium [Spiriva] 18 mcg IH DAILY 07/13/16 [History] Allergies Iodinated Contrast Media - Oral and [Iodinated Contrast Media - IV Dye] Allergy (Verified 04/29/16 10:48) Hives pioglitazone [From Actos] Allergy (Verified 04/29/16 10:48) See Comments swelling all over Sulfa (Sulfonamide Antibiotics) Allergy (Verified 04/29/16 10:48) Hives sulfamethoxazole [From Bactrim] Allergy (Verified 04/29/16 10:48) Itching trimethoprim [From Bactrim] Allergy (Verified 04/29/16 10:48) Itching NSAIDS (Non-Steroidal Anti-Inflamma Adverse Reaction (Verified 04/29/16 10:49) See Comments Has kidney disease Internal Medicine - CN: Exam - Constitutional Vitals: Temp Pulse Resp BP Pulse Ox 98.6 F 89 16 123/60 95 07/14/16 08:00 07/14/16 09:00 07/14/16 09:00 07/14/16 09:00 07/14/16 09:00 General appearance IM: Present: cooperative, mild distress, A&O X 3, morbidly obese, answers questions appropriately - Head Head exam: Present: atraumatic - Eye Eye exam: Present: EOMI, PERRL - Respiratory Respiratory exam: Present: CTAB. Absent: accessory muscle use, respiratory distress, rhonchi, wheezes - Cardiovascular Cardiovascular exam IM: Present: RRR, +S1, +S2 - GI/Abdominal GI/Abdominal exam IM: Present: normal bowel sounds, soft, no peritoneal signs. Absent: guarding, tenderness - Extremities Exam Extremities exam IM: Present: full ROM, normal capillary refill, normal inspection. Absent: pedal edema - Neurological Exam Neurological exam: Present: alert, oriented X3, no focal deficits. Absent: pronater drift, facial droop, speech deficit - Skin Skin exam IM: Present: intact, normal color Internal Medicine - CN: Reslt - Labs CBC & Chem 7: 07/14/16 03:48 07/14/16 06:26 Labs: Short CBC 07/14/16 Range/Units 03:48 WBC 14.8 H (4.3-11.1) K/mcL Hgb 12.7 (11.5-15.4) g/dL Hct 39.2 (35.3-44.9) % Plt Count 166 (140-400) K/mcL Neutrophils # 13.9 H (1.6-8.9) K/mcL BMP 07/14/16 06:26 Sodium 128 L D Potassium 6.0 H D Chloride 98 Carbon Dioxide 19 BUN 37 H D Creatinine 2.02 H Glucose 666 H* Calcium 7.6 L Cardiac Enzymes 07/13/16 07/13/16 Range/Units 16:28 22:57 Troponin I 2.68 H* 26.74 H* (0-0.03) ng/mL - ABG Interpretation ABG results: PT/INR, D-dimer PT 12.1 Seconds (9.4-12.1) 07/13/16 14:00 - Impressions Impressions Chest X-Ray 07/13/16 13:57 IMPRESSION: No acute cardiopulmonary process identified. D/ / Ángel Harrison MD / Ángel Harrison MD Interpreting Provider: Ángel Harrison MD Consult Discharge Plan - Plan Referrals: NO,PCP [Primary Care Provider] - - Attending Attestation This document has been at least partially created by [employer] recognition technology by Dr. Lubin. Errors in grammar, wording or other phrases may exist. If errors are found after the documentation is signed, they will be addressed individually in the addendum section of this document when appropriate. Thank you very much for this consultation care of this patient. We will follow along with you.
[2016-07-14] MEDS ORDERED: Insulin Human Regular 100 UNIT in 0.9 % Sodium Chloride 100 ML IVC SCH (09:30)
[2016-07-14] MEDS: Budesonide/Formoterol 80/4.5 MDI IH SCH ×2 (11:15→20:32)
[2016-07-14] MEDS: Tiotropium 18 MCG inhalation IH SCH (11:16)
[2016-07-14 12:38] LABS: Calcium 7.6 mg/dL (8.6-10.8); Potassium 4.8 mEq/L (3.5-4.5)
--- NOTE | 2016-07-14 13:02 | Electrocardiograph Report ---
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
--- NOTE | 2016-07-14 13:04 | Electrocardiograph Report ---
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
--- NOTE | 2016-07-14 13:42 | ECHO - Doppler Report ---
Echo with Imaging Enhancement Agent Name: Sandi Calderón Date of Study: 07/14/2016 Date: 1970 Ht: 67.0 in Medical Record#: [id number] Age: 46 Wt: 385.0 lb Gender: Female BSA: 2.67 Order #: [id number] Location: [facility] Room #: IC04 Reading Physician: Rola Sotelo DO Tv Host: JORDY BrisenoT, [facility] Ordering Physician: Lisa Car MD, [facility] Primary Physician: None Indications: Myocardial infarction Impressions: LVEF 55%. Even with use of Definity, not all myocardial segments were well visualized. Normal left ventricular size and systolic function. There is evidence of mild diastolic dysfunction of the left ventricle. RV function is normal. Mild mitral regurgitation. No pulmonary hypertension. Left Ventricular Wall Motion: Rest Echo Findings The mid anterior septal, mid inferior lateral and basal inferior lateral brito were not visualized. All other wall segments showed normal motion. Findings: Study Quality * Technically sub-optimal due to body habitus. ECG Findings * Normal sinus rhythm. Aortic Valve * No aortic regurgitation. * Aortic valve not well visualized. * No aortic stenosis. Mitral Valve * Mild- moderate mitral annular calcification * Mildly calcified mitral valve leaflets. * No mitral stenosis. * Mild mitral regurgitation. Tricuspid Valve * Tricuspid valve not well visualized. * Trace tricuspid regurgitation. Pulmonic Valve * Pulmonic valve is not well visualized. * No pulmonic stenosis. * No pulmonic regurgitation. Pulmonary Artery * Pulmonary artery not well visualized. Left Atrium * Normal left atrial size. Right Atrium * Normal right atrial size. Left Ventricle * LVEF 55%. * Normal LV chamber size, wall thickness and function. * Definity echo contrast was used. * Mild left ventricular diastolic dysfunction. Right Ventricle * Probably mildly dilated. Normal function. Interatrial Septum * Interatrial septum not well evaluated. Pericardium * There is no pericardial effusion present. IVC * The IVC is not well evaluated. Aorta * Not well visualized. History Hypertension Diabetes Hypercholesteremia History of Smoking Years 33 Packs 1 Family History of CAD History of CAD/PTCA Myocardial Infarction Congestive Heart Failure Contrast: Definity 1.3 ml in 8.7 ml of saline 2 ml. Measurements: BP: 124/ 47 2D Normal Values IVSd: 1.10 cm 0.6 - 1.0 cm LVIDd: 5.10 cm 3.7 - 5.6 cm LVPWd: 1.20 cm 0.6 - 1.1 cm LVIDs: 4.10 cm 1.5 - 3.6 cm AO: 2.60 cm < 4.0 cm LA: 5.10 cm 2.0 - 4.0cm %FS: 25.50 cm >25 % LA volume: Mitral Valve Peak Velocity 1.50 m/sec Mean Velocity:.86 m/sec Peak Grad:9.00 mmHg Mean Grad:4.00 mmHg Pressure Time:65.00 msec Valve Area:3.38 cm2 Peak E:1.52 m/sec Peak A:1.30 m/sec E/A Ratio:1.2 Tricuspid Valve TV Regurg Peak Grad: 24.00mmHg TV Regurg Peak Paul: 2.43m/sec Updated by Rola Sotelo on 07/14/2016 1:35:41 PM electronically signed on 07/14/2016 1:36:57 PM with status of Final Wall Motion Rodriguez: 1=Normal, 2=Hypokinesis, 3=Akinesis, 4=Dyskinesis, 5=Aneurysmal, 6=Hyperkinetic, X=Not Visualized (Blank)=Missing
[2016-07-14] MEDS ORDERED: Insulin DETEMIR 100 UNIT/ML X5UNITS SQ ONE (15:41)
[2016-07-14] MEDS: Insulin DETEMIR 100 UNIT/ML X5UNITS SQ SCH ×2 (21:11→21:14)
[2016-07-15] MEDS: 0.9 % Sodium Chloride 1,000 ML IVC SCH ×3 (03:20→21:28)
[2016-07-15 08:46] LABS: Basophils % 0.2 %; Eosinophils # 0.3 K/mcL (0.0-0.6); Eosinophils % 2.7 %; Hematocrit 35.2 % (35.3-44.9); Hemoglobin 11.4 g/dL (11.5-15.4); Immature Granulocytes % 0.5 % (0-4); Lymphocytes # 2.3 K/mcL (0.6-4.6); Lymphocytes % 17.6 %; Mean Corpuscular HGB Conc 32.4 g/dL (31.6-35.5); Mean Corpuscular Hemoglobin 28.1 pg (28.0-33.3); Mean Corpuscular Volume 86.7 fL (83.0-100.0); Monocytes # 0.5 K/mcL (0.0-1.3); Monocytes % 4.1 %; Neutrophils # 9.6 K/mcL (1.6-8.9); Platelet Count 161 K/mcL (140-400); Red Blood Count 4.06 M/mcL (3.82-4.97); Red Cell Distribution Width 14.2 % (11.5-14.5); Segmented Neutrophils % 74.9 %
[2016-07-15 08:58] LABS: Calcium 7.3 mg/dL (8.6-10.8); Potassium 4.9 mEq/L (3.5-4.5)
[2016-07-15] MEDS: Insulin LISPRO 300 UNITS/3 ML VIAL SQ SCH ×4 (09:03→17:22)
[2016-07-15] MEDS: BuPROPion XL (24 HR) 150 MG TABLET PO SCH (09:15)
[2016-07-15] MEDS: Pregabalin 75 MG CAPSULE PO SCH ×2 (09:15→21:04)
[2016-07-15] MEDS: Aspirin 81 MG TAB.CHEW PO SCH (09:15)
[2016-07-15] MEDS: Buprenorphine Hcl/Naloxone Hcl [Suboxone 8 Mg-2 Mg S SL SCH (09:16)
[2016-07-15] MEDS: Liraglutide [Victoza 2-Pak] 1.2 MG SQ SCH (09:18)
[2016-07-15] MEDS: Insulin DETEMIR 100 UNIT/ML X5UNITS SQ SCH ×2 (09:19→21:07)
--- NOTE | 2016-07-15 09:44 | Cardiology Progress Note ---
Date of Encounter: 07/15/16 Time of Encounter: 09:30 Assessment and Plan (1) ST elevation myocardial infarction (STEMI) Current Visit: Yes Status: Acute Presented to the ED as inferior STEMI s/p PTCA/ARSLAN to mRCA; otherwise mild, non- obstructive CAD. Peak troponin=26.74 Cardiac rehab consulted. Reports chest discomfort has nearly resolved. No issues overnight. Right groin cath site stable. May transfer out of ICU later today if electrolyte abnormalities improve. Continue DAPT (asa + plavix) for at least 1 year, uninterrupted. Continue statin. Will start betablocker and hold ACEi in light of JABARI on CKD. Post PCI guidelines discussed including restrictions and care of site. Risk factor modification emphasized including importance of smoking cessation and improved glycemic control. Dr. Medley discussed case with Dr. James--(admitting Hospitalist) who agreed to take on Hospitalist service once transferred out of ICU. Qualifiers: Involved coronary artery: right coronary artery Qualified Code(s): I21.11 - ST elevation (STEMI) myocardial infarction involving right coronary artery (2) DM2 (diabetes mellitus, type 2) Current Visit: Yes Status: Chronic Hx of poorly controlled DMII. Metformin on hold for at least 48 hours post LHC. Required IV insulin gtt--mgmt per Hospitalist service. Appreciate Hospitalist recommendations. Qualifiers: Diabetes mellitus complication status: with kidney complications Diabetes mellitus complication detail: with chronic kidney disease Diabetes mellitus penitentiary insulin use: with penitentiary use Chronic kidney disease stage: stage 3 (moderate) Qualified Code(s): E11.22 - Type 2 diabetes mellitus with diabetic chronic kidney disease; N18.3 - Chronic kidney disease, stage 3 ( moderate); Z79.4 - group home (current) use of insulin (3) Hyperkalemia Current Visit: Yes Status: Acute Improved with Kayexalate and IVF. Nephrology consulted this AM. (4) CKD (chronic kidney disease) stage 3, GFR 30-59 ml/min Current Visit: Yes Status: Chronic Hx of CKD-3. JABARI on CKD, SCr worsening this AM; suspect multifactoral-- possible BREN and was hypotensive overnight Dr. Benitez consulted this AM for further mgmt. (5) Tobacco use Current Visit: Yes Status: Chronic Reports 2ppd smoking history. Recently less than 1ppd for the past 4-6 months. Will start nicotine patch. Smoking cessation counseling provided, time spent = 5 minutes. Discussion w patient/family: The assessment and plan as outlined above was discussed with the patient and/or family members who expressed understanding and agreement. All questions were answered. Thank you for involving us in the care of your patient. Please call with any questions. The patient was discussed and reviewed with Dr. Medley who agrees with the plan as stated above. Subjective Principal diagnosis: Inferior STEMI Interval history: Seen and examined this morning at bedside. Denies chest pain or discomfort overnight. She has no complaints this morning upon exam. Objective Vital Signs, Last 4 Hours Temp Pulse Resp BP Pulse Ox 07/15/16 09:00 74 18 117/66 97 07/15/16 07:33 71 07/15/16 07:20 98.4 F 07/15/16 07:00 71 18 105/71 07/15/16 06:00 69 18 100/59 General: Conversant, Other (obese) HEENT: Atraumatic, Normocephaly Cardiac: Reg Rate and Rhythm, Normal S1 and S2 Lungs: Normal Breath Sounds Neuro: Alert and responsive Abdomen: Soft Skin: Other (Discoloration to BLE) Extremities: Other (non-pitting BLE edema, pulses per doppler signal. ) Results 07/15/16 08:36 07/15/16 08:36 Lab Results 07/14/16 07/15/16 07/15/16 12:17 08:36 08:36 WBC 12.8 H Hgb 11.4 L Hct 35.2 L Plt Count 161 Sodium 131 L 129 L Potassium 4.8 H D 4.9 H Chloride 100 98 Carbon Dioxide 20 22 BUN 42 H 52 H Creatinine 1.95 H 2.49 H Glucose 353 H 209 H Calcium 7.6 L 7.3 L Active Medications Acetaminophen (Tylenol) 500 mg PO Q6HR PRN PRN Reason: Mild Pain Stop: 01/12/17 15:58 Albuterol Sulfate (Albuterol Inhaler) 2 puff IH Q4H PRN PRN Reason: Shortness Of Breath Stop: 01/12/17 15:55 Last Admin: 07/14/16 11:15 Dose: 2 puff Aspirin (Aspirin) 81 mg PO DAILY [facility] Stop: 01/13/17 09:01 Last Admin: 07/15/16 09:15 Dose: 81 mg Atorvastatin Calcium (Lipitor) 80 mg PO HS [facility] Stop: 01/12/17 21:01 Last Admin: 07/14/16 21:08 Dose: 80 mg Budesonide/Formoterol Fumarate (Symbicort) 2 puff IH BIDR [facility] PRN Reason: Protocol Stop: 01/12/17 16:31 Last Admin: 07/14/16 20:32 Dose: 2 puff Bupropion HCl (Wellbutrin Xl) 300 mg PO QAM [facility] Stop: 01/13/17 09:01 Last Admin: 07/15/16 09:15 Dose: 300 mg Clopidogrel Bisulfate (Plavix) 75 mg PO DAILY [facility] Stop: 01/13/17 09:01 Last Admin: 07/15/16 09:15 Dose: 75 mg Dextrose/Water (Dextrose 50% (Syg)) 25 ml IVP AD PRN PRN Reason: Hypoglycemia Stop: 01/12/17 16:06 Glucagon (Glucagen) 1 mg IM ONCE PRN PRN Reason: Hypoglycemia Stop: 01/12/17 16:06 Glucose (Gluctose) 15 gm PO ONCE PRN PRN Reason: Hypoglycemia Stop: 01/12/17 16:06 Glucose (Gluctose) 30 gm PO ONCE PRN PRN Reason: Hypoglycemia Stop: 01/12/17 16:06 Dextrose (Dextrose 5%) 1,000 mls @ 100 mls/hr IV CONT PRN PRN Reason: HYPOGLYCEMIA Stop: 01/12/17 16:06 Sodium Chloride (0.9 % Sodium Chloride) 1,000 mls @ 100 mls/hr IVC .Q10H [facility] Stop: 01/13/17 08:16 Last Admin: 07/15/16 03:20 Dose: 100 mls/hr Insulin Detemir (Levemir) 20 unit SQ BID [facility] Stop: 01/13/17 21:01 Last Admin: 07/15/16 09:19 Dose: 20 unit Insulin Human Lispro (Humalog) 14 units 0.08 units/kg (14 units) SQ TIDWM [facility] Stop: 01/13/17 17:01 Last Admin: 07/15/16 09:04 Dose: 14 units Insulin Human Lispro (Humalog) 0 units SQ TIDAC [facility] PRN Reason: Protocol Stop: 01/13/17 16:31 Last Admin: 07/15/16 09:03 Dose: 6 units Insulin Human Lispro (Humalog) 0 units SQ HS [facility] PRN Reason: Protocol Stop: 01/13/17 21:01 Last Admin: 07/14/16 21:13 Dose: Not Given Lidocaine HCl (Lidoderm 5% Patch) 2 each TP Q24H [facility] Stop: 01/13/17 21:16 Last Admin: 07/14/16 21:32 Dose: 2 each Metoprolol Tartrate (Lopressor) 12.5 mg PO BID [facility] Stop: 01/14/17 21:01 Nitroglycerin (Nitroglycerin) 0.4 mg SL Q5MIN PRN PRN Reason: Chest Pain Stop: 01/12/17 15:58 Pharmacy Profile Note (Patient Taking Own Medication) 1.2 each SQ DAILY [facility] Stop: 01/13/17 09:01 Last Admin: 07/15/16 09:18 Dose: Not Given Pharmacy Profile Note (Patient Taking Own Medication) 1 each SL TID [facility] Stop: 01/12/17 21:01 Last Admin: 07/15/16 09:16 Dose: 1 each Pregabalin (Lyrica) 300 mg PO BID [facility] Stop: 01/12/17 21:01 Last Admin: 07/15/16 09:15 Dose: 300 mg Tiotropium Paradox (Spiriva) 18 mcg IH DAILY [facility] PRN Reason: Protocol Stop: 01/13/17 09:01 Last Admin: 07/14/16 11:16 Dose: Not Given - Imaging and Cardiology Echo: report reviewed Cardiac cath: report reviewed Other Results: 12 hour tele: avg HR=74 SR. No significant event noted. - EKG Interpretation EKG results cardiology: personally reviewed - VTE Reasons for not Prescribing Prophylaxis: Medical contraindication Consult Discharge Plan - Plan Referrals: NO,PCP [Primary Care Provider] -
[2016-07-15] MEDS ORDERED: Dextrose Gel 15 GM PO PRN ×2 (10:26)
[2016-07-15] MEDS ORDERED: *HR* Dextrose 50 % in Water (Syg) 50 ML SYRINGE IVP PRN (10:26)
[2016-07-15] MEDS ORDERED: D5% in Water 1,000 ML IV PRN (10:26)
[2016-07-15] MEDS ORDERED: Nitroglycerin 0.4 MG TAB.SUBL SL PRN (10:26)
--- NOTE | 2016-07-15 10:41 | Nephrology Consult Note ---
Date of Encounter: 07/15/16 Time of Encounter: 10:39 Assessment and Plan (1) Acute kidney failure, unspecified Current Visit: Yes Status: Acute The patient has acute kidney injury superimposed on stage III chronic kidney disease. The acute kidney injuries in the setting of a recent cardiac catheterization and coronary stent placement. She likely has contrast-induced nephropathy. She currently is receiving IV fluids. She is borderline oliguric. I am going to give her 1 dose of Lasix to try and increase her urine output in the meantime continue with IV fluid administration. All further nephrotoxin should be avoided. She was cautioned to remain off all nonsteroidal anti-inflammatory medications. The patient does have a history of underlying stage III chronic kidney disease with significant proteinuria noted on her previous urinalysis. Likely she has underlying diabetic nephropathy. A new evaluation will be initiated. She will require nephrology follow-up following hospital discharge. Qualifiers: Acute renal failure type: unspecified Qualified Code(s): N17.9 - Acute kidney failure, unspecified (2) Type 2 diabetes mellitus with diabetic chronic kidney disease Current Visit: Yes Status: Acute Qualifiers: Diabetes mellitus terminal operator insulin use: with halfway use Chronic kidney disease stage: stage 3 (moderate) Qualified Code(s): E11.22 - Type 2 diabetes mellitus with diabetic chronic kidney disease; N18.3 - Chronic kidney disease, stage 3 (moderate); Z79.4 - termite helper (current) use of insulin (3) STEMI (ST elevation myocardial infarction) Current Visit: Yes Status: Acute Qualifiers: Involved coronary artery: right coronary artery Qualified Code(s): I21.11 - ST elevation (STEMI) myocardial infarction involving right coronary artery (4) CKD (chronic kidney disease) stage 3, GFR 30-59 ml/min Current Visit: Yes Status: Chronic History of Present Illness - History of Present Illness This is a 46-year-old female who was admitted several days ago with acute onset of chest pain. She was diagnosed with a STEMI. She subsequently underwent a cardiac catheterization and had a stent placed in the mid right coronary artery on July 13. She presented with a creatinine of 1.48 and a history of chronic kidney disease. Her creatinine since her cardiac catheter is increased currently up to 2.49. Patient has a history of type 2 diabetes since the age of 13. She also has a history of hypertension hypercholesterolemia. She reports that she did not do a good job taking care of her diabetes and her A1c was running around 12 more recently had improved down to 9. She had been using nonsteroidal anti-inflammatories up until about a year ago. At that time she was hospitalized at [place] and told that she had chronic kidney disease and was told to stay off nonsteroidal anti-inflammatory agents. She does have a history of proteinuria. Urinalysis back in October 2015 showed greater than 300 mg /dL of protein. She has a history of lower extremity swelling. She has a history of an asymptomatic renal calculus that was detected when she was in [place]. She denies any difficulty emptying her bladder. She denies any recurrent urinary tract infections. She denies any family history of renal disease. She does have a past history of prescription pain medication abuse. She says she has been on Suboxone for the past 7 years. She denies any IV drug use. Past Med Surg Social Fam HX - Past Medical History Medical history: coronary artery disease, diabetes, hyperlipidemia, hypertension , venous stasis Psychiatric history: depression - Past Surgical History Surgical History: no surgical history - Social History Smoking Status: Current every day smoker Smokeless Tobacco Status: No Alcohol use: none Drug use: none - Family History Father Living Status: Age at : 41 Cause of : [place] Mother Living Status: Age at : 69 Hx Family Cardiac Disorders: Yes (Congestive heart failure) Hx Family Endocrine Disorder: Yes (Diabetes, morbid obesity) Medications and Allergies Buprenorphine HCl/Naloxone HCl [Suboxone 8 mg-2 mg Sl Film] 1.5 film SL BID [History] Metformin [Glucophage] 1,000 mg PO BID 06/27/15 [History] Bupropion HCl [Wellbutrin Xl] 300 mg PO QAM 11/22/15 [History] Fluticasone/Salmeterol [Advair 100-50 Diskus] 1 puff IH BID 11/22/15 [History] Insulin ASPART [NovoLOG] 35 unit SQ TIDWM 11/22/15 [History] Lisinopril [Zestril] 10 mg PO DAILY 11/22/15 [History] Pregabalin [Lyrica] 300 mg PO BID 11/22/15 [History] Albuterol Sulfate [Proair Hfa] 1 - 2 puff IH Q4H PRN 07/13/16 [History] Furosemide [Lasix] 40 mg PO DAILY PRN 07/13/16 [History] Lidocaine [Lidocaine] 1 - 4 patch TP AD 07/13/16 [History] Liraglutide [Victoza 2-Lavon] 1.2 mg SQ DAILY 07/13/16 [History] Simvastatin [Zocor] 80 mg PO DAILY 07/13/16 [History] Tiotropium [Spiriva] 18 mcg IH DAILY 07/13/16 [History] Allergies Iodinated Contrast Media - Oral and [Iodinated Contrast Media - IV Dye] Allergy (Verified 04/29/16 10:48) Hives pioglitazone [From Actos] Allergy (Verified 04/29/16 10:48) See Comments swelling all over Sulfa (Sulfonamide Antibiotics) Allergy (Verified 04/29/16 10:48) Hives sulfamethoxazole [From Bactrim] Allergy (Verified 04/29/16 10:48) Itching trimethoprim [From Bactrim] Allergy (Verified 04/29/16 10:48) Itching NSAIDS (Non-Steroidal Anti-Inflamma Adverse Reaction (Verified 04/29/16 10:49) See Comments Has kidney disease Review of Systems Constitutional: weakness Eyes: bilateral: blurred vision (patient denies), diplopia (patient denies) Nose, mouth and throat: no dizziness, no headache(s) Cardiovascular: as per HPI, chest pain at rest, chest pain with activity, dyspnea on exertion, edema Respiratory: dyspnea on exertion Gastrointestinal: no abdominal pain, no change in bowel habits Genitourinary Female: as per HPI Musculoskeletal: no muscle weakness, no numbness Integumentary: no hirsutism, no striae Neurological: as per HPI Psychiatric: no depression, no difficulty concentrating Endocrine: as per HPI Hematologic/Lymphatic: no easy bruising, no lymphadenopathy Exam - Vital Signs Vital signs: Initial Vital Signs Temp Pulse Resp BP Pulse Ox 97.7 F 101 18 0/0 98 07/13/16 13:56 07/13/16 13:56 07/13/16 13:56 07/13/16 13:56 07/13/16 13:56 Vital Signs - Last 8 Hours Temp Pulse Resp BP Pulse Ox 07/15/16 09:00 74 18 117/66 97 07/15/16 07:33 71 07/15/16 07:20 98.4 F 07/15/16 07:00 71 18 105/71 07/15/16 06:00 69 18 100/59 07/15/16 05:00 79 20 93/67 07/15/16 04:02 77 16 98/66 07/15/16 03:31 98.0 F 72 16 102/63 97 Intake and Output 07/14/16 07/15/16 07/15/16 23:59 07:59 15:59 Intake Total 1606 / 1606 1000 / 1000 Output Total 0 / 0 200 / 200 Balance 1606 / 1606 800 / 800 Intake: IV Fluids 1006 / 1006 1000 / 1000 0.9 % Sodium Chloride 1, 1000 / 1000 1000 / 1000 000 ML @ 100 mls/hr IVC . Q10H [facility] Rx#:[id number] HumuLIN R 100 UNIT In 0. 6 / 6 9 % Sodium Chloride 100 ML @ 10 UNIT/HR 10.1 mls/ hr IVC CONT [facility] Rx#: [id number] Oral 600 / 600 0 / 0 Output: Urine 0 / 0 200 / 200 Other: Meal Dinner Percent of Meal Consumed 100% Stool Size Large Stool Consistency loose Stool Color Brown # Bowel Movements 3 Weight 174 kg Blood Glucose* 161 226 - General Appearance Exam: Patient is alert and oriented. She is in no acute distress. Vital signs are stable. Urine output is recorded as 450 mL yesterday and 200 mL so far today. Patient is morbidly obese. Neck is supple. Lungs diminished breath sounds as well as some coarse breath sounds. No wheezing rales or rhonchi. Heart regular rate and rhythm. Abdomen is obese. Bowel sounds are normal. No bruits masses, megaly or tenderness. Lower [place] shows some mild edema as well as evidence of chronic venous stasis changes. Results - Lab Results 07/15/16 08:36 07/15/16 08:36 Most recent lab results Calcium 7.3 mg/dL (8.6-10.8) L 07/15/16 08:36 Consult Discharge Plan - Plan Referrals: NO,PCP [Primary Care Provider] -
[2016-07-15] MEDS ORDERED: Furosemide 40 MG/4 ML VIAL IVP ONE (10:45)
--- NOTE | 2016-07-15 11:14 | Internal Med Progress Note ---
Date of Encounter: 07/15/16 Time of Encounter: 11:14 - Assessment and plan (1) DM2 (diabetes mellitus, type 2) Current Visit: Yes Status: Chronic Assessment and plan: Blood sugars are better but still not controlled. Will increase Levemir dosage and also increased pre meal insulin. Continue to monitor blood sugars. Qualifiers: Diabetes mellitus complication status: with kidney complications Diabetes mellitus complication detail: with chronic kidney disease Diabetes mellitus long-term insulin use: with adjunct faculty for medical terminology use Chronic kidney disease stage: stage 3 (moderate) Qualified Code(s): E11.22 - Type 2 diabetes mellitus with diabetic chronic kidney disease; N18.3 - Chronic kidney disease, stage 3 ( moderate); Z79.4 - adjunct faculty for medical terminology (current) use of insulin (2) CKD (chronic kidney disease) stage 3, GFR 30-59 ml/min Current Visit: Yes Status: Chronic (3) ST elevation myocardial infarction (STEMI) Current Visit: Yes Status: Acute Qualifiers: Involved coronary artery: right coronary artery Qualified Code(s): I21.11 - ST elevation (STEMI) myocardial infarction involving right coronary artery (4) Acute kidney failure, unspecified Current Visit: Yes Status: Suspected Assessment and plan: Patient with acute kidney injury. Likely related to contrast-induced nephropathy versus worsening chronic kidney disease. Nephrology has been consulted. Will follow recommendations. Monitor urine output. Qualifiers: Acute renal failure type: with acute tubular necrosis Qualified Code(s): N17.0 - Acute kidney failure with tubular necrosis (5) Tobacco use Current Visit: Yes Status: Chronic Assessment and plan: Counseled about cessation. Patient is currently wheezing. Will order bronchodilator nebs when necessary. - Subjective Interval history: Patient is feeling better today. Her urine output has decreased. She denies any shortness of breath or chest pain. No nausea or vomiting. She says she is not drinking as much water as she usually does. She normally takes fluids in the form of soda rather than water. - Constitutional Vitals: Temp Pulse Resp BP Pulse Ox 98.4 F 74 18 117/66 97 07/15/16 07:20 07/15/16 09:00 07/15/16 09:00 07/15/16 09:00 07/15/16 09:00 General appearance: Present: cooperative, mild distress, A&O X 3, morbidly obese , answers questions appropriately - Eye Eye exam: Present: conjuntiva pink, sclera anicteric - Neck Neck exam general surgery: Present: supple, trachea midline. Absent: lymphadenopathy - Respiratory Respiratory exam: Present: prolonged expiratory phase, wheezes. Absent: accessory muscle use, rales, rhonchi - Cardiovascular Cardiovascular exam: Present: RRR, +S1, +S2. Absent: diastolic murmur, gallop, rubs, systolic murmur - GI/Abdominal GI/Abdominal exam: Present: normal bowel sounds, soft, no peritoneal signs. Absent: distended, tenderness - Extremities Exam Extremities exam: Present: warm, radial pulses palpable and symetrical. Absent : calf tenderness, cyanotic, pedal edema - Neurological Exam Neurological exam: Present: CN II-XII intact, oriented X3, no focal deficits. Absent: facial droop, speech deficit - Skin Skin exam: Present: dry, intact Internal Medicine: Result - Labs CBC & Chem 7: 07/15/16 08:36 07/15/16 08:36 Labs: Short CBC 07/15/16 Range/Units 08:36 WBC 12.8 H (4.3-11.1) K/mcL Hgb 11.4 L (11.5-15.4) g/dL Hct 35.2 L (35.3-44.9) % Plt Count 161 (140-400) K/mcL Neutrophils # 9.6 H (1.6-8.9) K/mcL BMP 07/14/16 07/15/16 12:17 08:36 Sodium 131 L 129 L Potassium 4.8 H D 4.9 H Chloride 100 98 Carbon Dioxide 20 22 BUN 42 H 52 H Creatinine 1.95 H 2.49 H Glucose 353 H 209 H Calcium 7.6 L 7.3 L - ABG Interpretation ABG results: PT/INR, D-dimer PT 12.1 Seconds (9.4-12.1) 07/13/16 14:00 - VTE Reasons for not Prescribing Prophylaxis: Medical contraindication Consult Discharge Plan - Plan Referrals: NO,PCP [Primary Care Provider] - - Attending Attestation This document has been at least partially created by [employer] recognition technology by Dr. Lubin. Errors in grammar, wording or other phrases may exist. If errors are found after the documentation is signed, they will be addressed individually in the addendum section of this document when appropriate.
[2016-07-15] MEDS ORDERED: Insulin LISPRO 300 UNITS/3 ML VIAL SQ SCH ×4 (11:30→21:00)
[2016-07-15] MEDS: SUBOXONE SL SCH ×2 (15:23→21:05)
[2016-07-15 15:34] LABS: Protein/Creatinine Ratio,Urine 0.88 mg/mg (0-0.20)
[2016-07-15] MEDS: Tiotropium 18 MCG inhalation IH SCH (19:52)
[2016-07-15] MEDS: Budesonide/Formoterol 80/4.5 MDI IH SCH ×2 (19:52→20:05)
[2016-07-15] MEDS ORDERED: Insulin DETEMIR 100 UNIT/ML X5UNITS SQ SCH (21:00)
[2016-07-16 03:32] LABS: Albumin/Globulin Ratio 0.5 (1.1-2.2); Bilirubin,Total 0.2 mg/dL (0.2-1.2); Calcium 7.2 mg/dL (8.6-10.8); Globulin 3.9 g/dL (2.4-3.5); Total Protein 5.9 g/dL (6.0-8.3)
[2016-07-16 03:35] LABS: Potassium 5.4 mEq/L (3.5-4.5)
[2016-07-16] MEDS: 0.9 % Sodium Chloride 1,000 ML IVC SCH (06:38)
[2016-07-16] MEDS: Insulin LISPRO 300 UNITS/3 ML VIAL SQ SCH ×2 (07:53)
[2016-07-16] MEDS: Insulin DETEMIR 100 UNIT/ML X5UNITS SQ SCH (07:53)
[2016-07-16] MEDS: Pregabalin 75 MG CAPSULE PO SCH (07:55)
[2016-07-16] MEDS ORDERED: Insulin LISPRO 300 UNITS/3 ML VIAL SQ SCH (08:01)
--- NOTE | 2016-07-16 08:06 | Internal Med Progress Note ---
Date of Encounter: 07/16/16 Time of Encounter: 08:03 - Assessment and plan (1) DM2 (diabetes mellitus, type 2) Current Visit: Yes Status: Chronic Qualifiers: Diabetes mellitus complication status: with kidney complications Diabetes mellitus complication detail: with chronic kidney disease Diabetes mellitus correction insulin use: with termite renewal inspector use Chronic kidney disease stage: stage 3 (moderate) Qualified Code(s): E11.22 - Type 2 diabetes mellitus with diabetic chronic kidney disease; N18.3 - Chronic kidney disease, stage 3 ( moderate); Z79.4 - residential (current) use of insulin (2) HTN (hypertension) Current Visit: No Status: Chronic Assessment and plan: #1 She had Levemir started yesterday , see if it starts working a little better today. #2 increase pre-meal dose Humalog to 18 units. Prior to this hospitalization she had been doing 25-35 units depending on size of meal. However at that time she was not on Levemir. #3 she can continue her Vicotza on discharge Qualifiers: Hypertension type: essential hypertension Qualified Code(s): I10 - Essential (primary) hypertension (3) CKD (chronic kidney disease) stage 3, GFR 30-59 ml/min Current Visit: Yes Status: Chronic (4) ST elevation myocardial infarction (STEMI) Current Visit: Yes Status: Acute Assessment and plan: Status/post cardiac catheterization with stent placement. Qualifiers: Involved coronary artery: right coronary artery Qualified Code(s): I21.11 - ST elevation (STEMI) myocardial infarction involving right coronary artery (5) Type 2 diabetes mellitus with diabetic chronic kidney disease Current Visit: Yes Status: Acute Qualifiers: Diabetes mellitus termite renewal inspector insulin use: with correction use Chronic kidney disease stage: stage 3 (moderate) Qualified Code(s): E11.22 - Type 2 diabetes mellitus with diabetic chronic kidney disease; N18.3 - Chronic kidney disease, stage 3 (moderate); Z79.4 - residential (current) use of insulin (6) Hyperkalemia Current Visit: Yes Status: Acute Assessment and plan: #1 I will remove any potassium supplements. Some of this elevation might be from her acute on chronic renal insufficiency. #2 This morning creatinine is better than yesterday. - Subjective Interval history: Patient states she feels fine... no CP/ SOB. Patient's blood sugars are better than yesterday with the adjustments in her diabetic regimen. - Constitutional Vitals: Temp Pulse Resp BP Pulse Ox 97.8 F 62 14 120/70 99 07/16/16 04:54 07/16/16 05:00 07/16/16 05:00 07/16/16 03:45 07/16/16 03:45 General appearance: Present: cooperative, mild distress, A&O X 3, morbidly obese , answers questions appropriately - Cardiovascular Cardiovascular exam: Present: RRR Internal Medicine: Result - Labs CBC & Chem 7: 07/15/16 08:36 07/16/16 02:41 Labs: Short CBC 07/15/16 Range/Units 08:36 WBC 12.8 H (4.3-11.1) K/mcL Hgb 11.4 L (11.5-15.4) g/dL Hct 35.2 L (35.3-44.9) % Plt Count 161 (140-400) K/mcL Neutrophils # 9.6 H (1.6-8.9) K/mcL BMP 07/15/16 07/16/16 08:36 02:41 Sodium 129 L 131 L Potassium 4.9 H 5.4 H Chloride 98 101 Carbon Dioxide 22 22 BUN 52 H 54 H Creatinine 2.49 H 1.96 H Glucose 209 H 155 H Calcium 7.3 L 7.2 L Liver Function 07/16/16 Range/Units 02:41 Total Bilirubin 0.2 (0.2-1.2) mg/dL AST 22 (5-34) Units/L ALT 14 (0-55) Units/L Alkaline Phosphatase 51 (38-126) Units/L Albumin 2.0 L (3.5-5.0) g/dL - ABG Interpretation ABG results: PT/INR, D-dimer PT 12.1 Seconds (9.4-12.1) 07/13/16 14:00 - Impressions Impressions Retroperitoneum Ultrasound 07/15/16 19:00 IMPRESSION: Unremarkable ultrasound of the kidneys and urinary bladder. D/ / Thor Castro / Thor Castro Interpreting Provider: Thor Castro - VTE Reasons for not Prescribing Prophylaxis: Medical contraindication Consult Discharge Plan - Plan Referrals: NO,PCP [Primary Care Provider] -
--- NOTE | 2016-07-16 08:24 | Nephrology Progress Note ---
Date of Encounter: 07/16/16 Time of Encounter: 08:22 - Assessment and Plan (1) Acute kidney failure, unspecified Current Visit: Yes Status: Suspected Patient has acute kidney injury superimposed on stage III chronic kidney disease in the setting of long-standing diabetes. Her acute kidney injury is resolving. From a renal standpoint it would be okay for the patient to be discharged home. We will provide follow-up as an outpatient for her chronic kidney disease. Qualifiers: Acute renal failure type: with acute tubular necrosis Qualified Code(s): N17.0 - Acute kidney failure with tubular necrosis (2) Type 2 diabetes mellitus with diabetic chronic kidney disease Current Visit: Yes Status: Acute Qualifiers: Diabetes mellitus longterm insulin use: with longterm use Chronic kidney disease stage: stage 3 (moderate) Qualified Code(s): E11.22 - Type 2 diabetes mellitus with diabetic chronic kidney disease; N18.3 - Chronic kidney disease, stage 3 (moderate); Z79.4 - custodial (current) use of insulin (3) STEMI (ST elevation myocardial infarction) Current Visit: Yes Status: Acute Qualifiers: Involved coronary artery: right coronary artery Qualified Code(s): I21.11 - ST elevation (STEMI) myocardial infarction involving right coronary artery (4) CKD (chronic kidney disease) stage 3, GFR 30-59 ml/min Current Visit: Yes Status: Chronic Subjective Principal diagnosis: Inferior STEMI Interval history: Patient states she feels better. She voices no complaints. Her renal function is improving. Urine output is increasing as well. Renal ultrasound was unremarkable. Objective - Vital Signs Vital signs: Vital Signs Temp Pulse Resp BP Pulse Ox 07/16/16 05:00 62 14 07/16/16 04:54 97.8 F 07/16/16 03:45 63 16 120/70 99 07/16/16 01:34 63 14 07/16/16 00:17 97.8 F 07/15/16 23:56 67 16 114/69 96 07/15/16 21:15 72 18 07/15/16 20:50 72 07/15/16 20:25 98.5 F 07/15/16 20:05 20 96 07/15/16 19:45 71 18 142/78 96 07/15/16 15:27 98.7 F 67 18 128/71 97 07/15/16 15:05 69 07/15/16 11:17 98.8 F 69 20 103/73 97 07/15/16 11:16 74 07/15/16 09:00 74 18 117/66 97 Intake and Output 07/15/16 07/16/16 07/16/16 23:59 07:59 15:59 Intake Total 850 / 850 1250 / 1250 Output Total 0 / 0 3450 / 3450 Balance 850 / 850 -2200 / -2200 Intake: IV Fluids 1000 / 1000 0.9 % Sodium Chloride 1, 1000 / 1000 000 ML @ 100 mls/hr IVC . Q10H [facility] Rx#:[id number] Oral 850 / 850 250 / 250 Output: Urine 0 / 0 3450 / 3450 Other: # Bowel Movements 0 Weight 179 kg Patient Weight 07/16/16 23:59 Weight 179 kg - General Appearance Exam: Patient is alert and oriented. She is in no acute distress. Lungs sounds otherwise clear. Heart regular rate and rhythm. Abdomen is obese. There is no abdominal tenderness. There is evidence of chronic venous stasis of the lower extremities. - Lab 07/15/16 08:36 07/16/16 02:41 Most recent lab results Calcium 7.2 mg/dL (8.6-10.8) L 07/16/16 02:41 Phosphorus 4.7 mg/dL (2.3-4.7) 07/15/16 13:27 Urine Creatinine 89 mg/dL 07/15/16 12:33 Urine Total Protein 78 mg/dL (1-14) H 07/15/16 12:33 - VTE Reasons for not Prescribing Prophylaxis: Medical contraindication Consult Discharge Plan - Plan Referrals: NO,PCP [Primary Care Provider] -
[2016-07-16] MEDS: SUBOXONE SL SCH (08:30)
[2016-07-16 08:57] VITALS: BP 128/72
[2016-07-16] MEDS ORDERED: Tiotropium 18 MCG inhalation IH SCH (09:00)
[2016-07-16] MEDS ORDERED: Aspirin 81 MG TAB.CHEW PO SCH (09:00)
[2016-07-16] MEDS ORDERED: VICTOZA 1.2 MG SQ SCH (09:00)
[2016-07-16] MEDS ORDERED: BuPROPion XL (24 HR) 150 MG TABLET PO SCH (09:00)
--- NOTE | 2016-07-16 09:31 | Cardiology Progress Note ---
Date of Encounter: 07/16/16 Time of Encounter: 09:00 Assessment and Plan (1) ST elevation myocardial infarction (STEMI) Current Visit: Yes Status: Acute Presented to the ED as inferior STEMI s/p PTCA/ARSLAN to mRCA; otherwise mild, non- obstructive CAD. Peak troponin=26.74 Cardiac rehab consulted. Has been chest pain free for >24 hours. Has remained in ICU, no available beds for step-down. Continue DAPT (asa + plavix) for at least 1 year, uninterrupted. Continue statin and betablocker. Post PCI guidelines discussed including restrictions and care of site. Risk factor modification emphasized including importance of smoking cessation and improved glycemic control. Will need 5-7 d day follow-up with [facility]---appointment request made via eCW. Patient was discussed and reviewed with Dr. Medley; Cardiology will sign-off, please call with questions. Qualifiers: Involved coronary artery: right coronary artery Qualified Code(s): I21.11 - ST elevation (STEMI) myocardial infarction involving right coronary artery (2) DM2 (diabetes mellitus, type 2) Current Visit: Yes Status: Chronic Hx of poorly controlled DMII. Control improved with medication adjustments made per Hospitalist. Will need close follow-up with PCP. Qualifiers: Diabetes mellitus complication status: with kidney complications Diabetes mellitus complication detail: with chronic kidney disease Diabetes mellitus senior care insulin use: with senior care use Chronic kidney disease stage: stage 3 (moderate) Qualified Code(s): E11.22 - Type 2 diabetes mellitus with diabetic chronic kidney disease; N18.3 - Chronic kidney disease, stage 3 ( moderate); Z79.4 - assistant terminal manager (current) use of insulin (3) Hyperkalemia Current Visit: Yes Status: Acute Stable, resolved. (4) CKD (chronic kidney disease) stage 3, GFR 30-59 ml/min Current Visit: Yes Status: Chronic Hx of CKD-3. JABARI on CKD, likely BREN. Dr. Benitez consulted yesterday. Recommend close outpatient follow-up with Nephrology. (5) Tobacco use Current Visit: Yes Status: Chronic Reports 2ppd smoking history. Recently less than 1ppd for the past 4-6 months. Will start nicotine patch. Smoking cessation counseling provided, time spent = 5 minutes. Discussion w patient/family: The assessment and plan as outlined above was discussed with the patient and/or family members who expressed understanding and agreement. All questions were answered. Thank you for involving us in the care of your patient. Please call with any questions. The patient was discussed and reviewed with Dr. Medley, Cardiology will sign-off , okay for d/c to home from Cardiology standpoint. Subjective Principal diagnosis: Inferior STEMI Interval history: Seen and examined this morning at bedside. Denies chest pain or discomfort overnight. She has no complaints this morning upon exam. Post PCI discharge instructions discussed including activity restrictions and care of site. All questions and concerns were addressed. Will need 5-7 day follow-up with [facility]. Objective Vital Signs, Last 4 Hours Temp Pulse Resp BP Pulse Ox 07/16/16 08:56 97.7 F 07/16/16 07:00 62 18 128/72 97 General: Conversant, No Apparent Distress HEENT: Atraumatic, Normocephaly, Mucus Membranes Moist Cardiac: Reg Rate and Rhythm, Normal S1 and S2 Lungs: Normal Breath Sounds Neuro: Alert and responsive Abdomen: Soft Skin: No rashes noted on visualized skin Musculoskeletal: No Chest Wall Tenderness Extremities: No Edema, Normal Pulses Results 07/15/16 08:36 07/16/16 02:41 Lab Results 07/16/16 02:41 Sodium 131 L Potassium 5.4 H Chloride 101 Carbon Dioxide 22 BUN 54 H Creatinine 1.96 H Glucose 155 H Calcium 7.2 L Total Bilirubin 0.2 AST 22 ALT 14 Alkaline Phosphatase 51 - Imaging and Cardiology Echo: report reviewed Cardiac cath: report reviewed Other Results: 12 hour tele: avg HR=69 SR. No significant events noted. - EKG Interpretation EKG results cardiology: personally reviewed - VTE Reasons for not Prescribing Prophylaxis: Medical contraindication Consult Discharge Plan - Plan Referrals: NO,PCP [Primary Care Provider] -
[2016-07-16] MEDS: Budesonide/Formoterol 80/4.5 MDI IH SCH (10:36)
--- NOTE | 2016-07-16 10:36 | Discharge Summary ---
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: with senior care use Chronic kidney disease stage: stage 3 (moderate) Qualified Code(s): E11.22 - Type 2 diabetes mellitus with diabetic chronic kidney disease; N18.3 - Chronic kidney disease, stage 3 ( moderate); Z79.4 - terminal manager (current) use of insulin (2) HTN (hypertension) Priority: Secondary Status: Chronic Qualifiers: Hypertension type: essential hypertension Qualified Code(s): I10 - Essential (primary) hypertension (3) CKD (chronic kidney disease) stage 3, GFR 30-59 ml/min Priority: Primary Status: Chronic (4) ST elevation myocardial infarction (STEMI) Priority: Primary Status: Acute Qualifiers: Involved coronary artery: right coronary artery Qualified Code(s): I21.11 - ST elevation (STEMI) myocardial infarction involving right coronary artery (5) Type 2 diabetes mellitus with diabetic chronic kidney disease Priority: Primary Status: Acute Qualifiers: Diabetes mellitus senior care insulin use: with senior care use Chronic kidney disease stage: stage 3 (moderate) Qualified Code(s): E11.22 - Type 2 diabetes mellitus with diabetic chronic kidney disease; N18.3 - Chronic kidney disease, stage 3 (moderate); Z79.4 - terminal manager (current) use of insulin (6) Hyperkalemia Priority: Secondary Status: Acute - Discharge Medications Prescriptions: Clopidogrel [Plavix] 75 mg PO DAILY #30 tablet Insulin DETEMIR [Levemir] 24 unit SQ BID #2 Insulin LISPRO [HumaLOG] 18 units SQ TIDWM #2 vial Metoprolol [Lopressor] 12.5 mg PO BID #30 tablet Home Medications: Buprenorphine HCl/Naloxone HCl [Suboxone 8 mg-2 mg Sl Film] 1.5 film SL BID [History] Metformin [Glucophage] 1,000 mg PO BID 06/27/15 [History] Bupropion HCl [Wellbutrin Xl] 300 mg PO QAM 11/22/15 [History] Fluticasone/Salmeterol [Advair 100-50 Diskus] 1 puff IH BID 11/22/15 [History] Insulin ASPART [NovoLOG] 35 unit SQ TIDWM 11/22/15 [History] Lisinopril [Zestril] 10 mg PO DAILY 11/22/15 [History] Pregabalin [Lyrica] 300 mg PO BID 11/22/15 [History] Albuterol Sulfate [Proair Hfa] 1 - 2 puff IH Q4H PRN 07/13/16 [History] Furosemide [Lasix] 40 mg PO DAILY PRN 07/13/16 [History] Lidocaine 1 - 4 patch TP AD 07/13/16 [History] Liraglutide [Victoza 2-Lavon] 1.2 mg SQ DAILY 07/13/16 [History] Simvastatin [Zocor] 80 mg PO DAILY 07/13/16 [History] Tiotropium [Spiriva] 18 mcg IH DAILY 07/13/16 [History] Aspirin 81 mg PO DAILY tab.chew 07/16/16 [Rx] Clopidogrel [Plavix] 75 mg PO DAILY #30 tablet 07/16/16 [Rx] Insulin DETEMIR [Levemir] 24 unit SQ BID #2 07/16/16 [Rx] Insulin LISPRO [HumaLOG] 18 units SQ TIDWM #2 vial 07/16/16 [Rx] Lidocaine Patch [Lidoderm 5% patch] 2 each TP Q24H adh..patch 07/16/16 [Rx] Metoprolol [Lopressor] 12.5 mg PO BID #30 tablet 07/16/16 [Rx] Allergies/Adverse Reactions: Allergies Iodinated Contrast Media - Oral and [Iodinated Contrast Media - IV Dye] Allergy (Verified 04/29/16 10:48) Hives pioglitazone [From Actos] Allergy (Verified 04/29/16 10:48) See Comments swelling all over Sulfa (Sulfonamide Antibiotics) Allergy (Verified 04/29/16 10:48) Hives sulfamethoxazole [From Bactrim] Allergy (Verified 04/29/16 10:48) Itching trimethoprim [From Bactrim] Allergy (Verified 04/29/16 10:48) Itching NSAIDS (Non-Steroidal Anti-Inflamma Adverse Reaction (Verified 04/29/16 10:49) See Comments Has kidney disease Procedures/tests Complete & Pending: Procedures Performed prior 72 hours Category Date Time Status Retroperitoneal Ultrasound - Complete [US Exams 07/15/16 19:00 Completed retroperitoneal comp] [US] Routine ECG 12 lead ECG [ECG] Routine Y 07/13/16 15:57 Ordered ECG 12 lead ECG [ECG] Routine Y 07/14/16 07:00 Ordered ECG 12 lead ECG [ECG] Stat Y 07/13/16 15:57 Completed EV echocardiogram w enhance Routine Y 07/14/16 07:00 Completed Date of admission: 07/13/16 14:15 Primary care physician: PCP NO Consults: 07/13/16 15:57 Consult to Cardiac Rehabilitation-Phase1 [CONS] Routine Comment: Reason for Consult: AMI Call Completed: Yes Consult to Nurse Navigator [CONS] Routine Comment: Consult to Nutrition [CONS] Routine Comment: Consulting Provider: NUTRITION Reason for Dietary Consult: Diet Education 07/13/16 16:05 Consult to School Superintendent [CONS] Routine Comment: 07/14/16 11:52 Consult to Hospitalist [CONS] Routine Consulting Provider: Hospitalist Eliel Reason for Consult: DMII--uncontrolled Time Notified: 08:00 Call Completed: Yes 07/15/16 09:38 Consult to Nephrology [CONS] Routine Consulting Provider: Kidney [facility] HTN Spclst QUYEN Reason for Consult: JABARI on CKD Time Notified: 09:30 Call Completed: Yes - Patient Status Disposition: Home, Self-Care Condition: Fair Functional capacity at discharge: independent ambulation Overall status at discharge: patient is back to baseline - Ambulatory Orders Ambulatory Orders: Basic Metabolic Panel [CHEM] Time Frame: 1 Week, Facility: [facility], Location: Lab - Discharge Instructions Instructions: Chronic Kidney Disease (DC), Diabetes Mellitus Type 2 in Adults ( DC), Myocardial Infarction (DC) Follow Up With: NO,PCP [Primary Care Provider] - Ivone Rowland, CARROTING MACHINE OFFBEARER [Partnered Physician] - (in 5- 7 days ) Jose D Benitez DO [Non-Partnered Physician] - (in 1-2weeks please get BMP done prior to appt. ) - Diet and Activity Activity: increase activity as tolerated, return to work once cleared by your PCP/specialist, resume usual activities as tolerated Diet: diabetic diet, low fat, low cholesterol Hospital course: Ms. Calderón is a 46 year old female admitted with STEMI, seen by cardiology and had urgent catherization with a stent being deployed to RCA. She was observed for 24-36 hours more after her angioplasty and stent placement. Here blood sugars out of control when she arrived here. She had previously been on Levemir with a pre-meal dose of short acting insulin. However these of been discontinued and she was started on Victoza along with an increase of her metformin to thousand milligrams twice daily. She states her sugars remain out of control since then. During course hospital stay she was started back on Levemir 24 units twice daily and 18 units of Humalog at each meal. She is doing very well. Blood sugars are improving. She is ready to discharge from standpoint of cardiology. During the course of hospital stay she did suffer from an episode of acute renal insufficiency most likely related to the dye load and underlining chronic kidney disease stage III secondary to diabetic complications. She should follow up with her primary care provider in one week, her collar worker in 1 week and follow-up with Dr. Benitez as directed. - Time Spent with Patient Total time spent providing and/or coordinating discharge services: Greater than 30 minutes - Constitutional Vitals: Temp Pulse Resp BP Pulse Ox 97.7 F 62 18 128/72 97 07/16/16 08:56 07/16/16 07:00 07/16/16 07:00 07/16/16 07:00 07/16/16 07:00 General appearance: Present: cooperative, mild distress, A&O X 3, morbidly obese , answers questions appropriately - Respiratory Respiratory exam: Present: CTAB. Absent: respiratory distress, rhonchi, wheezes - Cardiovascular Cardiovascular exam: Present: RRR, +S1, +S2 - VTE Reasons for not Prescribing Prophylaxis: Medical contraindication
--- NOTE | 2016-07-16 11:36 | Event Note ---
Date of Encounter: 07/16/16 Time of Encounter: 11:30 - Cardiology Event Note Provided scripts (written) for: Plavix 75 mg daily count: 30 refill:6 Lopressor 12.5 mg BID count: 30 refill:6 Asa 81 mg daily count:30 refill: 6 Follow-up scheduled with Dr. Medina on 07/18/16 at 5:10 PM. All questions and concerns were addressed prior to discharge.
[2016-07-17 09:48] LABS: Urine Collection Duration RANDOM hr; Urine Collection Volume RANDOM mL
[2016-07-19 02:09] LABS: Alpha 2 Globulin (PEP) 1.39 g/dL (0.48-1.05); Beta Globulin (PEP) 0.68 g/dL (0.48-1.10)
[2016-07-19 07:40] LABS: IFE Reflexed NOT DONE
== END 2016-07-16 11:52 | disposition home or self-care (01) | DRG 246 ==
LOC: EMEROO 13:55 → ICNU 14:15
PROVIDERS: ADMIT Internal Medicine Interventional Cardiology; ATTEND Internal Medicine

== ENCOUNTER 2017-08-05 19:46 | Inpatient (IN) ==
[2017-08-05] MEDS ORDERED: Acetaminophen 325 MG TABLET PO PRN (22:14)
[2017-08-05] MEDS ORDERED: Naloxone 0.4 MG/ML INJ IVP PRN (22:14)
[2017-08-05] MEDS ORDERED: Ipratropium/Albuterol Neb 3 ML IH PRN (22:15)
[2017-08-05] MEDS ORDERED: D5% in Water 1,000 ML IVC PRN (22:17)
[2017-08-05] MEDS ORDERED: Dextrose Gel 15 GM/37.5 ML TUBE PO PRN ×2 (22:17)
[2017-08-05] MEDS ORDERED: *HR* Dextrose 50 % in Water (Syg) 50 ML SYRINGE IVP PRN (22:17)
[2017-08-05] MEDS ORDERED: Insulin DETEMIR 100 UNIT/ML X5UNITS SQ SCH (22:30)
--- NOTE | 2017-08-05 22:30 | Internal Med History&Physical ---
Date of Encounter: 08/05/17 Time of Encounter: 22:00 Internal Medicine - H&P: HPI Chief complaint: Shortness of breath Admitted From: Home Plans for Post Hospital Care: Home History of present illness: Ms. Calderón is a 47 year old female complaining of shortness of breath for 3-4 days with productive cough. Past medical history: COPD, CHF, CKD, CAD S/P stent, depression, anxiety, diabetes Patient said she has some cold symptoms in last 3-4 days, with a runny nose, productive cough with greenish/yellowish sputum, increased shortness of breath. Patient has some subjective fever. She denies chest pain, nausea, or vomiting. Patient denies recent the blood with increased. She has chronic bilateral leg swelling, which is not increased recently. In [place] emergency room , she was treated with DuoNeb and her symptoms has improved after treatment. Chest x-ray is unremarkable. She was admitted for further management. Past Med Surg Social Fam HX - Past Medical History Medical history: arthritis, CHF, COPD, coronary artery disease, diabetes, fibromyalgia, hyperlipidemia, hypertension, kidney stones, myocardial infarction , renal disease, venous stasis, other Psychiatric history: anxiety, depression - Past Surgical History Surgical History: angioplasty/stent, orthopedic, other, other - Social History Smoking Status: Current every day smoker Packs per day: 0.5 Smokeless Tobacco Status: No Alcohol use: none Drug use: none - Family History Father Family Member Ethnicity: Non- Living Status: Age at : 41 Mother Living Status: Age at : 68 Hx Family Cardiac Disorders: Yes (Congestive heart failure) Hx Family Endocrine Disorder: Yes (Diabetes, morbid obesity) Internal Medicine - H&P: Meds Bupropion HCl [Wellbutrin Xl] 300 mg PO QAM 11/22/15 [History] Fluticasone/Salmeterol [Advair 100-50 Diskus] 1 puff IH BID 11/22/15 [History] Insulin ASPART [NovoLOG] 45 unit SQ TIDWM 11/22/15 [History] Albuterol Sulfate [Proair Hfa] 1 - 2 puff IH Q4H PRN 07/13/16 [History] Furosemide [Lasix] 40 mg PO DAILY 07/13/16 [History] Simvastatin [Zocor] 80 mg PO DAILY 07/13/16 [History] Aspirin 81 mg PO DAILY tab.chew 07/16/16 [Rx] Clopidogrel [Plavix] 75 mg PO DAILY #30 tablet 07/16/16 [Rx] Lidocaine Patch [Lidoderm 5% patch] 2 each TP Q24H adh..patch 07/16/16 [Rx] Metoprolol [Lopressor] 12.5 mg PO BID #30 tablet 07/16/16 [Rx] Amlodipine Besylate 10 mg PO DAILY 08/05/17 [History] Buprenorphine HCl/Naloxone HCl [Suboxone 8 mg-2 mg Sl Film] 1 each SL TID [History] Hydralazine HCl 100 mg PO TID 08/05/17 [History] Insulin Glargine,Hum.rec.anlog [Lantus Solostar] 50 unit SQ HS 08/05/17 [History ] cloNIDine HCl [Clonidine HCl] 0.2 mg PO Q8H 08/05/17 [History] 3 Allergy/AdvReac Type Severity Reaction Status Date / Time Iodinated Contrast- Oral and Allergy Hives Verified 08/05/17 17:13 IV Dye [Iodinated Contrast Media - IV Dye] pioglitazone [From Actos] Allergy See Verified 08/05/17 17:13 Comments Sulfa (Sulfonamide Allergy Hives Verified 08/05/17 17:13 Antibiotics) sulfamethoxazole Allergy Itching Verified 08/05/17 17:13 [From Bactrim] trimethoprim [From Bactrim] Allergy Itching Verified 08/05/17 17:13 NSAIDS (Non-Steroidal AdvReac See Verified 08/05/17 17:13 Anti-Inflamma Comments All Systems PM: A 10-system review of systems was performed and is negative for pertinent findings except as documented above in the HPI. - Constitutional Vitals: Temp Pulse Resp BP Pulse Ox 98 F 92 16 193/77 94 08/05/17 21:58 08/05/17 21:58 08/05/17 21:58 08/05/17 21:58 08/05/17 21:58 General appearance: Present: A&O X 3, morbidly obese, no acute distress - Head Head exam: Present: atraumatic, normocephalic - Eye Eye exam: Present: PERRL, conjuntiva pink, sclera anicteric Pupils: Present: PERRL - Neck Neck exam general surgery: Present: supple, trachea midline. Absent: lymphadenopathy - Respiratory Respiratory exam: Present: CTAB, wheezes (bilateral scattered wheezing, Rt > Lt) . Absent: accessory muscle use, rales, rhonchi - Cardiovascular Cardiovascular exam: Present: RRR, +S1, +S2. Absent: diastolic murmur, gallop, rubs, systolic murmur - GI/Abdominal GI/Abdominal exam: Present: normal bowel sounds, soft, no peritoneal signs. Absent: distended, tenderness - Extremities Exam Extremities exam: Present: pedal edema (Bilateral mild pedal edema), warm, radial pulses palpable and symmetrical. Absent: calf tenderness, cyanotic - Neurological Exam Neurological exam: Present: CN II-XII intact, oriented X3, no focal deficits. Absent: pronater drift, facial droop, speech deficit - Skin Skin exam: Present: dry, intact Internal Med - H&P Results - EKG Data -: EKG Interpreted by Myself EKG shows normal: sinus rhythm Rate: normal - Assessment and plan (1) CAD (coronary artery disease) Current Visit: Yes Status: Acute Assessment and plan: S/P stent. Denies chest pain at this point. Continue home medications. Qualifiers: Coronary Disease-Associated Artery/Lesion type: [place] artery [place] vs. transplanted heart: [place] heart Associated angina: without angina Qualified Code(s): I25.10 - Atherosclerotic heart disease of [place] coronary artery without angina pectoris (2) Morbid obesity with BMI of 60.0-69.9, adult Current Visit: Yes Status: Acute Assessment and plan: Need the lifestyle modification as outpatient (3) Acute exacerbation of chronic obstructive airways disease Current Visit: No Status: Acute Assessment and plan: Patient has productive cough, increased shortness of breath. History of COPD, consider COPD exacerbation. 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 Nicotine patch placed - Time Spent With Patient Total time spent is greater than 50% in coordination of care (as documented) at patient's floor/unit and/or counseling patient: 40 minutes Greater than 35 minutes
[2017-08-05] MEDS ORDERED: Azithromycin 500 MG in D5% in Water 250 ML IVPB SCH (23:00)
[2017-08-05] MEDS: Ipratropium/Albuterol Neb 3 ML IH SCH (23:10)
[2017-08-05] MEDS: Nicotine 21 MG PATCH.TD24 TD SCH (23:25)
[2017-08-05] MEDS: Furosemide 40 MG TABLET PO SCH (23:27)
[2017-08-05] MEDS: hydrALAZINE 25 MG TABLET PO SCH (23:27)
[2017-08-05] MEDS: cloNIDine HCl 0.1 MG TABLET PO SCH (23:28)
[2017-08-05] MEDS: predniSONE 20 MG TABLET PO SCH (23:28)
[2017-08-06] MEDS: Ipratropium/Albuterol Neb 3 ML IH SCH ×6 (03:34→23:11)
[2017-08-06] MEDS: cloNIDine HCl 0.1 MG TABLET PO SCH ×3 (05:37→21:54)
[2017-08-06 06:59] LABS: Basophils % 0.3 %; Hematocrit 31.4 % (35.3-44.9); Hemoglobin 9.8 g/dL (11.5-15.4); Immature Granulocytes % 0.7 % (0-4); Lymphocytes # 0.5 K/mcL (0.6-4.6); Lymphocytes % 7.3 %; Mean Corpuscular HGB Conc 31.2 g/dL (31.6-35.5); Mean Corpuscular Volume 89.7 fL (83.0-100.0); Mean Platelet Volume 9.9 fL (9.4-12.4); Monocytes # 0.2 K/mcL (0.0-1.3); Monocytes % 2.6 %; Neutrophils # 6.6 K/mcL (1.6-8.9); Platelet Count 184 K/mcL (140-400); Red Cell Distribution Width 14.1 % (11.5-14.5); Segmented Neutrophils % 89.1 %
[2017-08-06 07:42] LABS: BUN/Creatinine Ratio 31 (6-26); Blood Urea Nitrogen 30 mg/dL (6-20); Calcium 8.4 mg/dL (8.6-10.3); Carbon Dioxide 23 mEq/L (23-29); Chloride 106 mEq/L (98-107); Glucose 462 mg/dL (70-105); Magnesium 1.9 mg/dL (1.6-2.6); Osmolality,Calculated 304 (280-300); Potassium 4.9 mEq/L (3.5-5.1); Sodium 134 mEq/L (136-145); eGFR For African Americans > 60 (> 60); eGFR For Non-African Americans > 60 (> 60)
[2017-08-06] MEDS: predniSONE 20 MG TABLET PO SCH (08:14)
[2017-08-06] MEDS: BuPROPion XL (24 HR) 150 MG TABLET PO SCH (08:15)
[2017-08-06] MEDS: hydrALAZINE 25 MG TABLET PO SCH ×3 (08:15→21:53)
[2017-08-06] MEDS: Nicotine 21 MG PATCH.TD24 TD SCH (08:15)
[2017-08-06] MEDS: Aspirin 81 MG TAB.CHEW PO SCH (08:15)
[2017-08-06] MEDS: amLODIPine 5 MG TABLET PO SCH (08:15)
[2017-08-06] MEDS: Furosemide 40 MG TABLET PO SCH ×2 (08:16→16:42)
[2017-08-06] MEDS: Insulin LISPRO 300 UNITS/3 ML VIAL SQ SCH ×6 (08:17→21:56)
[2017-08-06] MEDS: Budesonide/Formoterol 80/4.5 MDI IH SCH ×2 (10:32→19:47)
[2017-08-06] MEDS ORDERED: Albuterol 2.5 MG/3 ML NEBULIZER IH PRN (10:34)
[2017-08-06] MEDS ORDERED: Furosemide 40 MG/4 ML VIAL IVP ONE (10:36)
[2017-08-06] MEDS ORDERED: Ipratropium/Albuterol Neb 3 ML ONE (10:40)
[2017-08-06 10:49] LABS: Estimated Average Glucose 189 mg/dl; Hemoglobin A1C 8.2 %
[2017-08-06] MEDS ORDERED: Insulin LISPRO 300 UNITS/3 ML VIAL SQ SCH (12:00)
[2017-08-06] MEDS: Fluticasone Propionate Nasal 50 MCG/SPRAY BOTTLE NS SCH (12:17)
--- NOTE | 2017-08-06 13:51 | Internal Med Progress Note ---
Date of Encounter: 08/06/17 Time of Encounter: 13:49 - Assessment and plan (1) Acute exacerbation of chronic obstructive airways disease Current Visit: No Status: Inactive Assessment and plan: Symptomatic with shortness of breath, cough and diffuse wheezing. CXR without infiltrate. Suspect acute COPD exacerbation. Continue IV is a mycin, add ceftriaxone, steroids and bronchodilators. Resp PCR, urinary antigens pending. (2) Acute on chronic diastolic (congestive) heart failure Current Visit: Yes Status: Acute Assessment and plan: Known history of CHF. 06/2016 TTE with EF 55% and mild diastolic dysfunction. Symptomatic with shortness of breath and worsening lower extremity edema. Reports medication compliance with Lasix at home. Suspect possible dietary noncompliance. Holding home Lasix, give a dose of IV Lasix. Repeat echo. (3) CKD (chronic kidney disease) stage 3, GFR 30-59 ml/min Current Visit: No Status: Chronic Assessment and plan: per hx. renal function stable. Avoid nephrotoxic agents as possible. Monitor repeat renal function (4) Type 2 diabetes mellitus with diabetic chronic kidney disease Current Visit: No Status: Acute Assessment and plan: per hx. Uncontrolled. Hgb 8.2%. Blood sugars uncontrolled likely due to medication, dietary noncompliance as well as steroids. Increase home long- acting, continue home prandial insulin at lower dose as diet is likely more restricted and continue SSI. 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 Denies chest pain at this point. Continue home medications. Qualifiers: Coronary Disease-Associated Artery/Lesion type: [place] artery [place] vs. transplanted heart: kaw heart Associated angina: without angina Qualified Code(s): I25.10 - Atherosclerotic heart disease of kaw coronary artery without angina pectoris (6) Morbid obesity with BMI of 60.0-69.9, adult Current Visit: Yes Status: Acute Assessment and plan: Need the lifestyle modification as outpatient (7) Tobacco use Current Visit: No Status: Chronic Assessment and plan: Smoking cessation education. Nicotine patch placed (8) DVT prophylaxis Current Visit: Yes Status: Acute Assessment and plan: heparin - Time Spent With Patient Total time spent is greater than 50% in coordination of care (as documented) at patient's floor/unit and/or counseling patient: - Subjective Interval history: Seen and examined at bedside. Patient is new to me, information obtained from chart review and patient report. She still short of breath and does not feel greatly improved from when she arrived yesterday. No chest pain. Has a productive cough, no fevers or chills. Says lower extremity edema is worse than baseline. Reports medication compliance at home. - Constitutional Vitals: Temp Pulse Resp BP Pulse Ox 97.9 F 76 16 161/76 94 08/06/17 11:16 08/06/17 11:16 08/06/17 11:16 08/06/17 11:16 08/06/17 12:19 General appearance: Present: A&O X 3, morbidly obese, no acute distress - Head Head exam: Present: atraumatic, normocephalic - Eye Eye exam: Present: PERRL, conjuntiva pink, sclera anicteric Pupils: Present: PERRL - Neck Neck exam general surgery: Present: supple, trachea midline. Absent: lymphadenopathy - Respiratory Respiratory exam: Present: CTAB, respiratory distress, rhonchi, wheezes. Absent : accessory muscle use, rales - Cardiovascular Cardiovascular exam: Present: RRR, +S1, +S2. Absent: diastolic murmur, gallop, rubs, systolic murmur - GI/Abdominal GI/Abdominal exam: Present: normal bowel sounds, soft, no peritoneal signs. Absent: distended, tenderness - Extremities Exam Extremities exam: Present: pedal edema (mod-severe bilateral pitting edema ), warm, radial pulses palpable and symmetrical. Absent: calf tenderness, cyanotic - Neurological Exam Neurological exam: Present: CN II-XII intact, oriented X3, no focal deficits. Absent: pronater drift, facial droop, speech deficit - Skin Skin exam: Present: dry, intact Internal Medicine: Result - Labs CBC & Chem 7: 08/06/17 06:22 08/06/17 06:22 Labs: Short CBC 08/06/17 Range/Units 06:22 WBC 7.4 (4.3-11.1) K/mcL Hgb 9.8 L (11.5-15.4) g/dL Hct 31.4 L (35.3-44.9) % Plt Count 184 (140-400) K/mcL Neutrophils # 6.6 (1.6-8.9) K/mcL BMP 08/06/17 06:22 Sodium 134 L Potassium 4.9 Chloride 106 Carbon Dioxide 23 BUN 30 H Creatinine 0.96 Glucose 462 H Calcium 8.4 L Consult Discharge Plan - Plan Referrals: Osiris Hernandez, POWER PLANT SUPERVISOR [Advanced Practice Nurse] - 08/13/17 9:00 am
[2017-08-06] MEDS: cefTRIAXone 1,000 MG in Water for inj. (sterile) 20 ML 10 ML IVP SCH (14:56)
[2017-08-06 16:06] LABS: Adenovirus Not Detected (Not Detect); Bordetella Pertussis Not Detected (Not Detect); Chlamydophila pneumoniae Not Detected (Not Detect); Coronavirus 229E Not Detected (Not Detect); Coronavirus HKU1 Not Detected (Not Detect); Coronavirus NL63 Not Detected (Not Detect); Coronavirus OC43 Not Detected (Not Detect); Human Metapneumovirus Not Detected (Not Detect); Human Rhinovirus/Enterovirus Not Detected (Not Detect); Influenza A Subtype 2009 H1 Not Detected (Not Detect); Influenza A Untypeable Not Detected (Not Detect); Influenza B Not Detected (Not Detect); Mycoplasma pneumoniae Not Detected (Not Detect); Parainfluenza Virus 1 Not Detected (Not Detect); Parainfluenza Virus 2 Not Detected (Not Detect); Parainfluenza Virus 3 Not Detected (Not Detect); Parainfluenza Virus 4 Not Detected (Not Detect); Respiratory Syncytial Virus Not Detected (Not Detect)
[2017-08-06] MEDS: Azithromycin 250 MG TABLET PO SCH (21:54)
[2017-08-06] MEDS: Insulin DETEMIR 100 UNIT/ML X5UNITS SQ SCH (21:54)
[2017-08-07] MEDS: Ipratropium/Albuterol Neb 3 ML IH SCH ×6 (03:22→23:52)
[2017-08-07 06:04] LABS: Hemoglobin 9.8 g/dL (11.5-15.4); Mean Corpuscular HGB Conc 31.6 g/dL (31.6-35.5); Mean Corpuscular Hemoglobin 28.4 pg (28.0-33.3); Mean Corpuscular Volume 89.9 fL (83.0-100.0); Mean Platelet Volume 9.8 fL (9.4-12.4); Platelet Count 210 K/mcL (140-400); Red Blood Count 3.45 M/mcL (3.82-4.97); Red Cell Distribution Width 14.1 % (11.5-14.5)
[2017-08-07 06:24] LABS: BUN/Creatinine Ratio 40 (6-26); Blood Urea Nitrogen 40 mg/dL (6-20); Calcium 8.6 mg/dL (8.6-10.3); Carbon Dioxide 24 mEq/L (23-29); Chloride 107 mEq/L (98-107); Glucose 206 mg/dL (70-105); Osmolality,Calculated 296 (280-300); Potassium 4.1 mEq/L (3.5-5.1); Sodium 135 mEq/L (136-145); eGFR For African Americans > 60 (> 60); eGFR For Non-African Americans 59 (> 60)
[2017-08-07] MEDS: Budesonide/Formoterol 80/4.5 MDI IH SCH ×2 (07:13→20:11)
[2017-08-07] MEDS: cefTRIAXone 1,000 MG in Water for inj. (sterile) 20 ML 10 ML IVP SCH (09:10)
[2017-08-07] MEDS: BuPROPion XL (24 HR) 150 MG TABLET PO SCH (09:11)
[2017-08-07] MEDS: predniSONE 20 MG TABLET PO SCH (09:11)
[2017-08-07] MEDS: Furosemide 40 MG TABLET PO SCH ×2 (09:12→18:49)
[2017-08-07] MEDS: cloNIDine HCl 0.1 MG TABLET PO SCH ×3 (09:12→21:05)
[2017-08-07] MEDS: hydrALAZINE 25 MG TABLET PO SCH ×3 (09:12→21:05)
[2017-08-07] MEDS: Aspirin 81 MG TAB.CHEW PO SCH (09:12)
[2017-08-07] MEDS: amLODIPine 5 MG TABLET PO SCH (09:12)
[2017-08-07] MEDS: Nicotine 21 MG PATCH.TD24 TD SCH (09:12)
[2017-08-07] MEDS: Insulin LISPRO 300 UNITS/3 ML VIAL SQ SCH ×7 (09:13→21:06)
[2017-08-07] MEDS: Fluticasone Propionate Nasal 50 MCG/SPRAY BOTTLE NS SCH (09:17)
[2017-08-07] MEDS ORDERED: Perflutren Lipid Microsphere 1.3 ML in 0.9 % Sodium Chloride 8.7 ML IVP ONE (11:51)
[2017-08-07] MEDS ORDERED: Perflutren Lipid Microsphere 2 ML VIAL ONE (11:55)
--- NOTE | 2017-08-07 17:04 | Internal Med Progress Note ---
Date of Encounter: 08/07/17 Time of Encounter: 17:01 - Assessment and plan (1) Acute exacerbation of chronic obstructive airways disease Current Visit: No Status: Inactive Assessment and plan: Symptomatic with shortness of breath, cough and diffuse wheezing. CXR without infiltrate. Suspect acute COPD exacerbation. Respiratory PCR, urinary antigens negative. Continue IV azithromycin, ceftriaxone, steroids and bronchodilators. Sputum culture pending. (2) Acute on chronic diastolic (congestive) heart failure Current Visit: Yes Status: Acute Assessment and plan: Known history of CHF. 06/2016 TTE with EF 55% and mild diastolic dysfunction. Symptomatic with shortness of breath and worsening lower extremity edema. Repeat TTE with EF 55%, indeterminate diastolic dysfunction. Reports medication compliance with Lasix at home. Suspect possible dietary noncompliance. Received one-time dose IV Lasix with improvement in symptoms. Give another dose now, resume home Lasix in the morning. Continue daily weights , strict I&O's, low-sodium diet. (3) CKD (chronic kidney disease) stage 3, GFR 30-59 ml/min Current Visit: No Status: Chronic Assessment and plan: per hx. renal function stable. Avoid nephrotoxic agents as possible. Monitor repeat renal function (4) Type 2 diabetes mellitus with diabetic chronic kidney disease Current Visit: No Status: Acute Assessment and plan: per hx. Uncontrolled. Hgb 8.2%. Blood sugars uncontrolled likely due to medication, dietary noncompliance as well as steroids. Increase home long- acting, continue home prandial insulin at lower dose as diet is likely more restricted and continue SSI. 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 Denies chest pain at this point. Continue home medications. Qualifiers: Coronary Disease-Associated Artery/Lesion type: [place] artery [place] vs. transplanted heart: [place] heart Associated angina: without angina Qualified Code(s): I25.10 - Atherosclerotic heart disease of [place] coronary artery without angina pectoris (6) Morbid obesity with BMI of 60.0-69.9, adult Current Visit: Yes Status: Acute Assessment and plan: Need the lifestyle modification as outpatient (7) Tobacco use Current Visit: No Status: Chronic Assessment and plan: Smoking cessation education. Nicotine patch placed (8) Pericardial effusion Current Visit: Yes Status: Acute Assessment and plan: TTE with trivial pericardial effusion. IV Lasix as noted above. Recommend repeat echocardiogram within 1-2 weeks outpatient. (9) Acute respiratory failure Current Visit: Yes Status: Acute Assessment and plan: Does not wear oxygen at home. Now requiring 2 L O2 to maintain adequate saturations. Secondary to acute COPD exacerbations. Continue treating underlying causes as noted above. Wean oxygen as able. She may need oxygen at discharge. Qualifiers: Respiratory failure complication: hypoxia Qualified Code(s): J96.01 - Acute respiratory failure with hypoxia (10) DVT prophylaxis Current Visit: Yes Status: Acute Assessment and plan: heparin - Time Spent With Patient Total time spent is greater than 50% in coordination of care (as documented) at patient's floor/unit and/or counseling patient: - Subjective Interval history: Seen and examined at bedside; still has productive cough and is short of breath but overall improved. She feels swelling in her legs has improved as well. Overall improved but not back to baseline. She feels she needs 1 more night in the hospital. - Constitutional Vitals: Temp Pulse Resp BP Pulse Ox 97.8 F 65 18 164/68 96 08/07/17 16:00 08/07/17 16:00 08/07/17 16:00 08/07/17 16:00 08/07/17 16:00 General appearance: Present: A&O X 3, morbidly obese, no acute distress - Head Head exam: Present: atraumatic, normocephalic - Eye Eye exam: Present: PERRL, conjuntiva pink, sclera anicteric Pupils: Present: PERRL - Neck Neck exam general surgery: Present: supple, trachea midline. Absent: lymphadenopathy - Respiratory Respiratory exam: Present: CTAB, rhonchi, wheezes. Absent: accessory muscle use , rales - Cardiovascular Cardiovascular exam: Present: RRR, +S1, +S2. Absent: diastolic murmur, gallop, rubs, systolic murmur - GI/Abdominal GI/Abdominal exam: Present: normal bowel sounds, soft, no peritoneal signs. Absent: distended, tenderness - Extremities Exam Extremities exam: Present: pedal edema, warm, radial pulses palpable and symmetrical. Absent: calf tenderness, cyanotic - Neurological Exam Neurological exam: Present: CN II-XII intact, oriented X3, no focal deficits. Absent: pronater drift, facial droop, speech deficit - Skin Skin exam: Present: dry, intact Internal Medicine: Result - Labs CBC & Chem 7: 08/07/17 04:59 08/07/17 04:59 Labs: Short CBC 08/07/17 Range/Units 04:59 WBC 8.2 (4.3-11.1) K/mcL Hgb 9.8 L (11.5-15.4) g/dL Hct 31.0 L (35.3-44.9) % Plt Count 210 (140-400) K/mcL BMP 08/07/17 04:59 Sodium 135 L Potassium 4.1 Chloride 107 Carbon Dioxide 24 BUN 40 H Creatinine 1.00 Glucose 206 H Calcium 8.6 - Impressions Impressions Echocardiogram 08/07/17 10:34 Impressions: LVEF 55%. Indeterminate diastolic function. Definity echo contrast was used. RV is not well visualized. Mild mitral regurgitation. Mild tricuspid regurgitation. Severe pulmonary hypertension. There is a trivial pericardial effusion present along the inferior border of the RV. There is no echocardiographic evidence of tamponade. The IVC is dilated. Left Ventricular Wall Motion: Rest Echo Findings All wall segments showed normal motion. Findings: Study Quality * Technically challenging due to body habitus. ECG Findings * Normal sinus rhythm. Left Ventricle * LVEF 55%. * Normal LV chamber size, wall thickness and function. * Indeterminate diastolic function. * Definity echo contrast was used. Right Ventricle * RV is not well visualized. Left Atrium * Normal left atrial size. Right Atrium * Normal right atrial size. Mitral Valve * Normal mitral valve structure. * No mitral stenosis. * Mild mitral annular calcification * Mild mitral regurgitation. Aortic Valve * No aortic regurgitation. * Trileaflet aortic valve. * No aortic stenosis. Tricuspid Valve * Tricuspid valve not well visualized. * Mild tricuspid regurgitation. * Estimated RA pressure is 20 mmHg. * Estimated RVSP is 63 mmHg. * Severe pulmonary hypertension. Pulmonic Valve * Pulmonic valve is not well visualized. * No pulmonic stenosis. * No pulmonic regurgitation. Pulmonary Artery * Pulmonary artery not well visualized. Aorta * Normally sized aortic root. * Ascending aorta not well visualized. Pericardium * There is a trivial pericardial effusion present along the inferior border of the RV. * There is no echocardiographic evidence of tamponade. IVC * The IVC is dilated. * < 50% respiratory change. Interatrial Septum * Interatrial septum not well evaluated. - VTE Documentation of Mechanical Device: Intermittent pneumatic compression device Consult Discharge Plan - Plan Referrals: Osiris Hernandez CNP [Advanced Practice Nurse] - 08/13/17 9:00 am
[2017-08-07] MEDS ORDERED: Furosemide 40 MG/4 ML VIAL IVP ONE (17:06)
[2017-08-07] MEDS: Azithromycin 250 MG TABLET PO SCH (21:05)
[2017-08-07] MEDS: Insulin DETEMIR 100 UNIT/ML X5UNITS SQ SCH (21:06)
[2017-08-08] MEDS: Ipratropium/Albuterol Neb 3 ML IH SCH ×4 (03:39→15:26)
[2017-08-08 05:08] LABS: BUN/Creatinine Ratio 42 (6-26); Blood Urea Nitrogen 45 mg/dL (6-20); Calcium 9.1 mg/dL (8.6-10.3); Carbon Dioxide 25 mEq/L (23-29); Chloride 106 mEq/L (98-107); Glucose 226 mg/dL (70-105); Osmolality,Calculated 305 (280-300); Potassium 4.2 mEq/L (3.5-5.1); Sodium 138 mEq/L (136-145); eGFR For African Americans > 60 (> 60); eGFR For Non-African Americans 55 (> 60)
[2017-08-08] MEDS: Budesonide/Formoterol 80/4.5 MDI IH SCH (07:44)
[2017-08-08] MEDS: Insulin LISPRO 300 UNITS/3 ML VIAL SQ SCH ×6 (08:11→17:04)
[2017-08-08] MEDS: cefTRIAXone 1,000 MG in Water for inj. (sterile) 20 ML 10 ML IVP SCH (10:30)
[2017-08-08] MEDS: amLODIPine 5 MG TABLET PO SCH (10:36)
[2017-08-08] MEDS: BuPROPion XL (24 HR) 150 MG TABLET PO SCH (10:36)
[2017-08-08] MEDS: predniSONE 20 MG TABLET PO SCH (10:36)
[2017-08-08] MEDS: Furosemide 40 MG TABLET PO SCH ×2 (10:36→17:05)
[2017-08-08] MEDS: cloNIDine HCl 0.1 MG TABLET PO SCH ×2 (10:37→17:04)
[2017-08-08] MEDS: hydrALAZINE 25 MG TABLET PO SCH ×2 (10:37→17:04)
[2017-08-08] MEDS: Aspirin 81 MG TAB.CHEW PO SCH (10:38)
[2017-08-08] MEDS: Nicotine 21 MG PATCH.TD24 TD SCH (10:39)
[2017-08-08] MEDS: Fluticasone Propionate Nasal 50 MCG/SPRAY BOTTLE NS SCH (10:39)
[2017-08-08 11:37] VITALS: BP 155/69
--- NOTE | 2017-08-08 12:09 | Discharge Summary ---
- NOTES TO OUTPATIENT PROVIDER Notes to Outpatient Provider: Patient was treated for COPD exacerbation as well as mild CHF. She was dishcarged on prednisone taper and azithromax to finish 5 days. We diuresed her with IV lasix. She was on room air day of discharge. She weighed at 386 Ibs which according to her is about 20Ibs from her usual weight but she also stated that her weight fluctuates and she has gained up to 100Ibs at times before that went away with diuresis. She was wanting to get discharged and I advised her to take an extra lasix 40 mg for the next 5 days with potassium Orders not resulted at time of discharge: Pending orders 08/07/17 12:00 Sputum Culture [Culture,Sputum with Gram Stain] [] Routine Date of Encounter: 08/08/17 Time of Encounter: 12:07 - Discharge Diagnosis (1) CKD (chronic kidney disease) stage 3, GFR 30-59 ml/min Priority: Secondary Status: Chronic (2) Tobacco use Priority: Secondary Status: Chronic (3) Type 2 diabetes mellitus with diabetic chronic kidney disease Priority: Secondary Status: Acute Qualifiers: Diabetes mellitus detention insulin use: with detention use Chronic kidney disease stage: stage 3 (moderate) Qualified Code(s): E11.22 - Type 2 diabetes mellitus with diabetic chronic kidney disease; N18.3 - Chronic kidney disease, stage 3 (moderate); N18.3 - Chronic kidney disease, stage 3 (moderate); Z79.4 - watermelon inspector (current) use of insulin; Z79.4 - watermelon inspector (current) use of insulin; Z79.4 - watermelon inspector (current) use of insulin; Z79.4 - [facility] (current) use of insulin (4) Acute exacerbation of chronic obstructive airways disease Priority: Primary Status: Inactive (5) CAD (coronary artery disease) Priority: Secondary Status: Acute Qualifiers: Coronary Disease-Associated Artery/Lesion type: [place] artery [place] vs. transplanted heart: [place] heart Associated angina: without angina Qualified Code(s): I25.10 - Atherosclerotic heart disease of [place] coronary artery without angina pectoris (6) Morbid obesity with BMI of 60.0-69.9, adult Priority: Secondary Status: Acute (7) Acute on chronic diastolic (congestive) heart failure Priority: Primary Status: Acute (8) Pericardial effusion Priority: Secondary Status: Acute (9) Acute respiratory failure Priority: Primary Status: Acute Qualifiers: Respiratory failure complication: hypoxia Qualified Code(s): J96.01 - Acute respiratory failure with hypoxia Hospital course: Ms. Calderón is a 47 year old female with h/o COPD, CHF, CKD, CAD S/P stent, depression, anxiety, diabetes presented complaining of shortness of breath for 3 -4 days with productive cough. She complained of b/l leg swelling above baseline. She went to [place] ED and was sent to get admitted here at [place]. She was treated for COPD exacerbation with IV steroids and was also diuresed. Eventually she was discharged on oral prednisone taper, azithromax. She did not require O2. She was advised to take 40 mg oral laisx BID the next 5 days with a dose of 20 meq of potassium on those days. She is to return to daily lasix 40 mg after those 5 days. - Time Spent with Patient Total time spent providing and/or coordinating discharge services: Greater than 30 minutes - Discharge Medications Prescriptions: Azithromycin [Zithromax] 500 mg PO Q24H #2 tablet Potassium Chloride 20 meq PO DAILY #5 tab.er.prt predniSONE [PredniSONE] See Taper PO TAPER #30 tablet Home Medications: Bupropion HCl [Wellbutrin Xl] 300 mg PO QAM 11/22/15 [History] Fluticasone/Salmeterol [Advair 100-50 Diskus] 1 puff IH BID 11/22/15 [History] Albuterol Sulfate [Proair Hfa] 1 - 2 puff IH Q4H PRN 07/13/16 [History] Furosemide [Lasix] 40 mg PO DAILY 07/13/16 [History] Simvastatin [Zocor] 80 mg PO DAILY 07/13/16 [History] Aspirin 81 mg PO DAILY tab.chew 07/16/16 [Rx] Clopidogrel [Plavix] 75 mg PO DAILY #30 tablet 07/16/16 [Rx] Lidocaine Patch [Lidoderm 5% patch] 2 each TP Q24H adh..patch 07/16/16 [Rx] Amlodipine Besylate 10 mg PO DAILY 08/05/17 [History] Buprenorphine HCl/Naloxone HCl [Suboxone 8 mg-2 mg Sl Film] 1 each SL TID [History] Hydralazine HCl 100 mg PO TID 08/05/17 [History] Insulin Glargine,Hum.rec.anlog [Lantus Solostar] 50 unit SQ HS 08/05/17 [History ] cloNIDine HCl [Clonidine HCl] 0.2 mg PO Q8H 08/05/17 [History] Insulin LISPRO [Humalog Kwikpen U-100] 45 units SQ TIDWM 08/06/17 [History] Lisinopril [Zestril] 20 mg PO DAILY 08/06/17 [History] Metoprolol Succinate [Toprol Xl] 25 mg PO BID 08/06/17 [History] Azithromycin [Zithromax] 500 mg PO Q24H #2 tablet 08/08/17 [Rx] Potassium Chloride 20 meq PO DAILY #5 tab.er.prt 08/08/17 [Rx] predniSONE [PredniSONE] See Taper PO TAPER #30 tablet 08/08/17 [Rx] Allergies/Adverse Reactions: 3 Allergy/AdvReac Type Severity Reaction Status Date / Time Iodinated Contrast- Oral and Allergy Hives Verified 08/06/17 09:24 IV Dye [Iodinated Contrast Media - IV Dye] pioglitazone [From Actos] Allergy See Verified 08/06/17 09:24 Comments Sulfa (Sulfonamide Allergy Hives Verified 08/06/17 09:24 Antibiotics) sulfamethoxazole Allergy Itching Verified 08/06/17 09:24 [From Bactrim] trimethoprim [From Bactrim] Allergy Itching Verified 08/06/17 09:24 NSAIDS (Non-Steroidal AdvReac See Verified 08/06/17 09:24 Anti-Inflamma Comments Date of admission: 08/06/17 14:46 Primary care physician: Sj Desir DO Consults: 08/06/17 06:19 Consult to Waxer Operator [CONS] Routine Reason for SW Consult: Pt needs qualified for home o2. Pt is a direct admit from [facility], and nurse who gave me report said she ambulated pt and her oxygen sats dropped down to 84%. - Constitutional Vitals: Temp Pulse Resp BP Pulse Ox 98.1 F 64 16 155/69 91 08/08/17 11:36 08/08/17 11:36 08/08/17 11:36 08/08/17 11:36 08/08/17 11:36 General appearance: Present: A&O X 3, morbidly obese, no acute distress - Patient Status Disposition: Home, Self-Care Condition: Fair Overall status at discharge: patient is progressing back to baseline - Discharge Instructions Follow Up With: Osiris Hernandez CNP [Advanced Practice Nurse] - 08/13/17 9:00 am Additional Instructions: Take an extra lasix (40 mg in the morning and 40 mg in the evening) for the next 5 days then go back to taking 40 mg daily. Take potassium pill for next 5 days. finish antibiotics for next 2 days finish prednisone taper for next 12 days See your primary care physician early next week - Diet and Activity Activity: increase activity as tolerated Diet: diabetic diet, low salt diet - VTE Documentation of Mechanical Device: Intermittent pneumatic compression device
== END 2017-08-08 16:50 | disposition home or self-care (01) | DRG 190 ==
LOC: 2ANU
PROVIDERS: ADMIT Pediatrics; ATTEND Internal Medicine

== ENCOUNTER 2020-06-09 16:12 | Inpatient (IN) ==
[2020-06-10] MEDS ORDERED: Naloxone 0.4 MG/ML INJ IVP PRN (01:01)
[2020-06-10] MEDS ORDERED: Ondansetron ODT 4 MG TAB.RAPDIS SL PRN (01:01)
[2020-06-10 02:06] LABS: Basophils % 0.2 %; Eosinophils % 0.1 %; Hematocrit 33.6 % (35.3-44.9); Hemoglobin 10.4 g/dL (11.5-15.4); Immature Granulocytes % 0.5 % (0-4); Lymphocytes # 1.1 K/mcL (0.6-4.6); Lymphocytes % 8.5 %; Mean Corpuscular Hemoglobin 26.1 pg (28.0-33.3); Mean Corpuscular Volume 84.2 fL (83.0-100.0); Mean Platelet Volume 10.7 fL (9.4-12.4); Monocytes # 0.7 K/mcL (0.0-1.3); Monocytes % 5.7 %; Neutrophils # 10.5 K/mcL (1.6-8.9); Platelet Count 233 K/mcL (140-400); Red Blood Count 3.99 M/mcL (3.82-4.97); Red Cell Distribution Width 17.7 % (11.5-14.5); White Blood Count 12.3 K/mcL (4.3-11.1)
[2020-06-10 02:12] LABS: INR 1.2; Prothrombin Time 14.3 Seconds (9.4-12.1)
[2020-06-10 02:26] LABS: Magnesium 1.7 mg/dL (1.6-2.6); Phosphorous 3.5 mg/dL (2.7-4.5)
[2020-06-10] MEDS ORDERED: Perflutren Lipid Microsphere 1.3 ML in 0.9 % Sodium Chloride 8.7 ML IVP PRN ×2 (03:36→10:19)
[2020-06-10] MEDS ORDERED: Magnesium Sulfate 1 GM/102 ML PIGGYBACK IVPB ONE (03:41)
[2020-06-10] MEDS ORDERED: *HR* Heparin 5,000 UNIT/ML VIAL SQ SCH (06:00)
[2020-06-10] MEDS: BuPROPion XL (24 HR) 150 MG TABLET PO SCH (08:19)
[2020-06-10] MEDS: amLODIPine 5 MG TABLET PO SCH (08:19)
[2020-06-10] MEDS: Aspirin 81 MG TAB.CHEW PO SCH (08:19)
[2020-06-10] MEDS: Furosemide 40 MG/4 ML VIAL IVP SCH (08:19)
[2020-06-10] MEDS: (Buprenorphine Hcl/Naloxone Hcl [Suboxone 8 Mg-2 Mg SL) SL SCH ×2 (08:20→21:07)
[2020-06-10] MEDS ORDERED: *HR* Heparin 5,000 UNIT/ML VIAL IVP PRN ×4 (10:20→10:21)
[2020-06-10] MEDS ORDERED: *HR* Heparin 5,000 UNIT/ML VIAL IVP ONE ×2 (10:20→10:21)
[2020-06-10] MEDS: Ipratropium/Albuterol Neb 3 ML IH SCH ×3 (10:21→22:58)
[2020-06-10] MEDS: Budesonide/Formoterol 80/4.5 1 PUFF INH IH SCH ×2 (10:21→22:58)
[2020-06-10] MEDS ORDERED: Heparin 25,000UNIT/250ML 1/2NS 25,000 UNIT/250 ML IV.SOLN IVC SCH (10:30)
[2020-06-10 11:25] LABS: Hematocrit 33.2 % (35.3-44.9); Hemoglobin 10.3 g/dL (11.5-15.4); Mean Corpuscular Hemoglobin 26.3 pg (28.0-33.3); Mean Corpuscular Volume 84.9 fL (83.0-100.0); Mean Platelet Volume 10.4 fL (9.4-12.4); Platelet Count 217 K/mcL (140-400); Red Blood Count 3.91 M/mcL (3.82-4.97); White Blood Count 11.6 K/mcL (4.3-11.1)
[2020-06-10 11:28] LABS: Heparin anti-factor XA UFH 0.04 IU/mL (0.30-0.70); INR 1.2; Prothrombin Time 13.3 Seconds (9.4-12.1)
[2020-06-10] MEDS: Heparin 25,000UNIT/250ML 1/2NS 25,000 UNIT/250 ML IV.SOLN IVC SCH (11:28)
[2020-06-10] MEDS: Insulin LISPRO 300 UNITS/3 ML VIAL SUBQ SCH ×3 (12:05→21:06)
[2020-06-10] MEDS: *HR* Metoprolol 5 MG/5 ML VIAL IVP PRN (18:48)
[2020-06-10] MEDS: Insulin DETEMIR 100 UNIT/ML X5UNITS SUBQ SCH (21:06)
[2020-06-11] MEDS: Heparin 25,000UNIT/250ML 1/2NS 25,000 UNIT/250 ML IV.SOLN IVC SCH ×4 (00:15→19:56)
[2020-06-11 00:44] LABS: Basophils # 0.1 K/mcL (0.0-0.2); Basophils % 0.5 %; Eosinophils # 0.1 K/mcL (0.0-0.6); Eosinophils % 0.9 %; Hemoglobin 10.3 g/dL (11.5-15.4); Immature Granulocytes % 0.3 % (0-4); Lymphocytes # 2.1 K/mcL (0.6-4.6); Lymphocytes % 17.5 %; Mean Corpuscular HGB Conc 31.2 g/dL (31.6-35.5); Mean Corpuscular Hemoglobin 26.3 pg (28.0-33.3); Mean Corpuscular Volume 84.4 fL (83.0-100.0); Mean Platelet Volume 10.5 fL (9.4-12.4); Monocytes # 0.7 K/mcL (0.0-1.3); Monocytes % 5.9 %; Neutrophils # 8.9 K/mcL (1.6-8.9); Platelet Count 219 K/mcL (140-400); Red Blood Count 3.91 M/mcL (3.82-4.97); Segmented Neutrophils % 74.9 %
[2020-06-11 01:15] LABS: Calcium 8.9 mg/dL (8.6-10.3); Potassium 4.4 mEq/L (3.5-5.1)
[2020-06-11] MEDS: Ipratropium/Albuterol Neb 3 ML IH SCH ×4 (05:06→21:45)
[2020-06-11] MEDS: Metoprolol 100 MG TABLET PO SCH ×2 (08:46→20:24)
[2020-06-11] MEDS: amLODIPine 5 MG TABLET PO SCH (08:46)
[2020-06-11] MEDS: Furosemide 40 MG/4 ML VIAL IVP SCH (08:46)
[2020-06-11] MEDS: (Buprenorphine Hcl/Naloxone Hcl [Suboxone 8 Mg-2 Mg SL) SL SCH ×2 (08:46→20:24)
[2020-06-11] MEDS: BuPROPion XL (24 HR) 150 MG TABLET PO SCH (08:46)
[2020-06-11] MEDS: Aspirin 81 MG TAB.CHEW PO SCH (08:46)
[2020-06-11] MEDS: Insulin LISPRO 300 UNITS/3 ML VIAL SUBQ SCH ×4 (08:47→20:24)
[2020-06-11] MEDS: *HR* Metoprolol 5 MG/5 ML VIAL IVP PRN (08:47)
[2020-06-11] MEDS: Budesonide/Formoterol 80/4.5 1 PUFF INH IH SCH ×2 (10:25→21:45)
[2020-06-11] MEDS ORDERED: methylPREDNISolone 125 MG/2 ML VIAL IVP STA (12:21)
[2020-06-11] MEDS: Levalbuterol Neb 1.25 MG/3 ML IH SCH ×3 (16:19→21:50)
[2020-06-11] MEDS ORDERED: Furosemide 40 MG/4 ML VIAL IVP ONE (16:40)
[2020-06-11] MEDS: Insulin DETEMIR 100 UNIT/ML X5UNITS SUBQ SCH (20:24)
[2020-06-12] MEDS: Levalbuterol Neb 1.25 MG/3 ML IH SCH ×4 (04:01→21:57)
[2020-06-12] MEDS: Ipratropium/Albuterol Neb 3 ML IH SCH ×4 (04:01→22:00)
[2020-06-12 06:23] LABS: Basophils % 0.1 %; Hematocrit 33.2 % (35.3-44.9); Hemoglobin 10.1 g/dL (11.5-15.4); Immature Granulocytes % 0.5 % (0-4); Lymphocytes # 0.5 K/mcL (0.6-4.6); Lymphocytes % 6.2 %; Mean Corpuscular HGB Conc 30.4 g/dL (31.6-35.5); Mean Corpuscular Hemoglobin 25.8 pg (28.0-33.3); Mean Corpuscular Volume 84.9 fL (83.0-100.0); Mean Platelet Volume 10.8 fL (9.4-12.4); Monocytes # 0.3 K/mcL (0.0-1.3); Monocytes % 4.5 %; Neutrophils # 6.7 K/mcL (1.6-8.9); Platelet Count 183 K/mcL (140-400); Red Blood Count 3.91 M/mcL (3.82-4.97); Red Cell Distribution Width 17.9 % (11.5-14.5); Segmented Neutrophils % 88.7 %; White Blood Count 7.6 K/mcL (4.3-11.1)
[2020-06-12 06:52] LABS: Calcium 8.8 mg/dL (8.6-10.3); Magnesium 1.8 mg/dL (1.6-2.6); Potassium 4.9 mEq/L (3.5-5.1)
[2020-06-12] MEDS: amLODIPine 5 MG TABLET PO SCH (07:40)
[2020-06-12] MEDS: Metoprolol 100 MG TABLET PO SCH ×2 (07:40→20:54)
[2020-06-12] MEDS: BuPROPion XL (24 HR) 150 MG TABLET PO SCH (07:40)
[2020-06-12] MEDS: Aspirin 81 MG TAB.CHEW PO SCH (07:40)
[2020-06-12] MEDS: Furosemide 40 MG/4 ML VIAL IVP SCH ×2 (07:41→20:54)
[2020-06-12] MEDS: Insulin LISPRO 300 UNITS/3 ML VIAL SUBQ SCH ×4 (07:42→20:55)
[2020-06-12] MEDS: Heparin 25,000UNIT/250ML 1/2NS 25,000 UNIT/250 ML IV.SOLN IVC SCH ×2 (08:04→17:55)
[2020-06-12] MEDS: (Buprenorphine Hcl/Naloxone Hcl [Suboxone 8 Mg-2 Mg SL) SL SCH ×2 (09:18→21:34)
[2020-06-12] MEDS: Budesonide/Formoterol 80/4.5 1 PUFF INH IH SCH ×2 (10:02→21:57)
[2020-06-12] MEDS ORDERED: 0.9 % Sodium Chloride 1,000 ML ONE (12:46)
[2020-06-12] MEDS ORDERED: Lidocaine Viscous Oral Soln 15 ML SOLUTION ONE (13:19)
[2020-06-12] MEDS ORDERED: Insulin DETEMIR 100 UNIT/ML X5UNITS SUBQ ONE (13:36)
[2020-06-12] MEDS ORDERED: *HR* FentaNYL (PF) 100 MCG/2 ML VIAL ONE ×2 (13:43→13:56)
[2020-06-12] MEDS ORDERED: *HR* Midazolam HCl 2 MG/2 ML VIAL ONE ×2 (13:43→13:56)
[2020-06-12] MEDS ORDERED: Heparin 25,000 UNIT/250 ML D5W 25,000 UNIT/250 ML IV.SOLN ONE (14:08)
[2020-06-12] MEDS: MethylPREDNISolone 40 MG/ML VIAL IVP SCH ×2 (14:42→18:11)
[2020-06-12] MEDS: Spironolactone 12.5 MG TABLET PO SCH (18:11)
[2020-06-12] MEDS: lisinopriL 5 MG TABLET PO SCH (18:11)
[2020-06-12] MEDS: *HR* Amiodarone 200 MG TABLET PO SCH (20:54)
[2020-06-12] MEDS: Insulin DETEMIR 100 UNIT/ML X5UNITS SUBQ SCH (20:55)
[2020-06-13 04:07] LABS: Calcium 8.8 mg/dL (8.6-10.3); Potassium 5.1 mEq/L (3.5-5.1)
[2020-06-13 04:08] LABS: Basophils % 0.1 %; Hematocrit 32.3 % (35.3-44.9); Hemoglobin 9.8 g/dL (11.5-15.4); Immature Granulocytes % 0.4 % (0-4); Lymphocytes # 0.5 K/mcL (0.6-4.6); Lymphocytes % 6.1 %; Mean Corpuscular HGB Conc 30.3 g/dL (31.6-35.5); Mean Corpuscular Hemoglobin 25.9 pg (28.0-33.3); Mean Corpuscular Volume 85.4 fL (83.0-100.0); Mean Platelet Volume 10.8 fL (9.4-12.4); Monocytes # 0.2 K/mcL (0.0-1.3); Monocytes % 2.8 %; Neutrophils # 7.7 K/mcL (1.6-8.9); Platelet Count 194 K/mcL (140-400); Red Blood Count 3.78 M/mcL (3.82-4.97); Red Cell Distribution Width 18.1 % (11.5-14.5); Segmented Neutrophils % 90.6 %; White Blood Count 8.5 K/mcL (4.3-11.1)
[2020-06-13] MEDS: Levalbuterol Neb 1.25 MG/3 ML IH SCH ×4 (04:11→21:57)
[2020-06-13] MEDS: Ipratropium/Albuterol Neb 3 ML IH SCH ×2 (04:13→10:58)
[2020-06-13] MEDS: MethylPREDNISolone 40 MG/ML VIAL IVP SCH ×2 (05:12→16:12)
[2020-06-13] MEDS: Heparin 25,000UNIT/250ML 1/2NS 25,000 UNIT/250 ML IV.SOLN IVC SCH ×2 (05:12→11:58)
[2020-06-13 05:32] LABS: ABG Base Excess 1 mEq/L (-2 to 3); ABG HCO3 29 mEq/L (21-27); ABG Oxygen Saturation 90 % (95-98); ABG PCO2 58 mmHg (35-45); ABG PH 7.31 pH Units (7.32-7.45); ABG PO2 66 mmHg (85-104); ABG TCO2 31 mEq/L (20-26)
[2020-06-13] MEDS: *HR* Amiodarone 200 MG TABLET PO SCH ×2 (08:16→21:38)
[2020-06-13] MEDS: amLODIPine 5 MG TABLET PO SCH (08:16)
[2020-06-13] MEDS: Metoprolol 100 MG TABLET PO SCH (08:16)
[2020-06-13] MEDS: lisinopriL 5 MG TABLET PO SCH (08:16)
[2020-06-13] MEDS: Spironolactone 12.5 MG TABLET PO SCH (08:16)
[2020-06-13] MEDS: Aspirin 81 MG TAB.CHEW PO SCH (08:16)
[2020-06-13] MEDS: Furosemide 40 MG/4 ML VIAL IVP SCH (08:17)
[2020-06-13] MEDS: Insulin LISPRO 300 UNITS/3 ML VIAL SUBQ SCH ×4 (08:18→21:42)
[2020-06-13] MEDS: BuPROPion XL (24 HR) 150 MG TABLET PO SCH (08:22)
[2020-06-13] MEDS ORDERED: lisinopriL 10 MG TABLET PO SCH (10:00)
[2020-06-13] MEDS: (Buprenorphine Hcl/Naloxone Hcl [Suboxone 8 Mg-2 Mg SL) SL SCH ×2 (10:01→21:38)
[2020-06-13] MEDS ORDERED: Spironolactone 12.5 MG TABLET PO ONE (10:02)
[2020-06-13] MEDS ORDERED: lisinopriL 5 MG TABLET PO ONE ×2 (10:03→10:08)
[2020-06-13] MEDS: Spironolactone 25 MG TABLET PO SCH (10:05)
[2020-06-13] MEDS ORDERED: Sennosides/Docusate Sodium TABLET PO PRN (10:14)
[2020-06-13] MEDS: Budesonide/Formoterol 80/4.5 1 PUFF INH IH SCH ×2 (10:57→21:57)
[2020-06-13] MEDS ORDERED: Insulin DETEMIR 100 UNIT/ML X5UNITS SUBQ ONE ×2 (12:07→15:54)
[2020-06-13] MEDS ORDERED: Levalbuterol Neb 1.25 MG/3 ML IH PRN (13:53)
[2020-06-13 14:56] LABS: INR 1.3; Prothrombin Time 15.2 Seconds (9.4-12.1)
[2020-06-13 15:28] LABS: Heparin anti-factor XA UFH 0.74 IU/mL (0.30-0.70)
[2020-06-13] MEDS: Furosemide 40 MG TABLET PO SCH (16:13)
[2020-06-13] MEDS ORDERED: Warfarin perPT PO PRN (18:00)
[2020-06-13] MEDS ORDERED: *HR* Warfarin 5 MG TABLET PO ONE (18:00)
[2020-06-13] MEDS: Metoprolol XL (24 HR) Succ 50 MG TAB.ER.24H PO SCH (21:38)
[2020-06-13] MEDS: Insulin DETEMIR 100 UNIT/ML X5UNITS SUBQ SCH (21:42)
[2020-06-14] MEDS: Heparin 25,000UNIT/250ML 1/2NS 25,000 UNIT/250 ML IV.SOLN IVC SCH ×4 (00:29→23:29)
[2020-06-14] MEDS: Levalbuterol Neb 1.25 MG/3 ML IH SCH ×4 (03:54→21:39)
[2020-06-14] MEDS: MethylPREDNISolone 40 MG/ML VIAL IVP SCH ×2 (05:13→18:05)
[2020-06-14 05:40] LABS: White Blood Count 9.3 K/mcL (4.3-11.1)
[2020-06-14 05:40] LABS: INR 1.2; Prothrombin Time 13.4 Seconds (9.4-12.1)
[2020-06-14 05:41] LABS: Basophils % 0.1 %; Immature Granulocytes % 0.4 % (0-4); Lymphocytes # 0.9 K/mcL (0.6-4.6); Lymphocytes % 9.2 %; Mean Corpuscular HGB Conc 30.3 g/dL (31.6-35.5); Mean Corpuscular Volume 85.7 fL (83.0-100.0); Mean Platelet Volume 10.5 fL (9.4-12.4); Monocytes # 0.5 K/mcL (0.0-1.3); Monocytes % 5.7 %; Neutrophils # 7.9 K/mcL (1.6-8.9); Platelet Count 178 K/mcL (140-400); Red Blood Count 3.85 M/mcL (3.82-4.97); Red Cell Distribution Width 18.1 % (11.5-14.5); Segmented Neutrophils % 84.6 %
[2020-06-14 06:04] LABS: Calcium 8.9 mg/dL (8.6-10.3); Magnesium 1.6 mg/dL (1.6-2.6); Potassium 4.9 mEq/L (3.5-5.1)
[2020-06-14] MEDS: Insulin LISPRO 300 UNITS/3 ML VIAL SUBQ SCH ×4 (08:08→20:22)
[2020-06-14] MEDS: BuPROPion XL (24 HR) 150 MG TABLET PO SCH (08:09)
[2020-06-14] MEDS: Metoprolol XL (24 HR) Succ 50 MG TAB.ER.24H PO SCH ×2 (08:09→20:22)
[2020-06-14] MEDS: Spironolactone 25 MG TABLET PO SCH (08:09)
[2020-06-14] MEDS: *HR* Amiodarone 200 MG TABLET PO SCH ×2 (08:09→20:22)
[2020-06-14] MEDS: Furosemide 40 MG TABLET PO SCH ×2 (08:09→18:05)
[2020-06-14] MEDS: lisinopriL 10 MG TABLET PO SCH (08:10)
[2020-06-14] MEDS: (Buprenorphine Hcl/Naloxone Hcl [Suboxone 8 Mg-2 Mg SL) SL SCH ×2 (08:13→20:22)
[2020-06-14] MEDS ORDERED: lisinopriL 5 MG TABLET PO SCH (09:00)
[2020-06-14] MEDS: Budesonide/Formoterol 80/4.5 1 PUFF INH IH SCH ×2 (10:52→21:40)
[2020-06-14] MEDS ORDERED: *HR* Warfarin 5 MG TABLET PO ONE (18:00)
[2020-06-14] MEDS: Insulin DETEMIR 100 UNIT/ML X5UNITS SUBQ SCH (20:23)
[2020-06-14] MEDS: Acetaminophen 325 MG TABLET PO PRN (22:05)
[2020-06-15] MEDS: Levalbuterol Neb 1.25 MG/3 ML IH SCH ×4 (03:49→21:54)
[2020-06-15] MEDS: MethylPREDNISolone 40 MG/ML VIAL IVP SCH ×2 (06:17→16:50)
[2020-06-15 06:38] LABS: INR 1.1; Prothrombin Time 12.5 Seconds (9.4-12.1)
[2020-06-15 08:16] LABS: Basophils % 0.1 %; Eosinophils % 0.1 %; Hematocrit 34.6 % (35.3-44.9); Hemoglobin 10.2 g/dL (11.5-15.4); Immature Granulocytes % 0.3 % (0-4); Lymphocytes # 0.8 K/mcL (0.6-4.6); Lymphocytes % 7.5 %; Mean Corpuscular HGB Conc 29.5 g/dL (31.6-35.5); Mean Corpuscular Hemoglobin 25.4 pg (28.0-33.3); Mean Corpuscular Volume 86.3 fL (83.0-100.0); Monocytes # 0.5 K/mcL (0.0-1.3); Monocytes % 4.2 %; Neutrophils # 9.7 K/mcL (1.6-8.9); Platelet Count 189 K/mcL (140-400); Red Blood Count 4.01 M/mcL (3.82-4.97); Red Cell Distribution Width 18.1 % (11.5-14.5); Segmented Neutrophils % 87.8 %; White Blood Count 11.1 K/mcL (4.3-11.1)
[2020-06-15 08:33] LABS: BUN/Creatinine Ratio 40 (6-26); Blood Urea Nitrogen 46 mg/dL (6-20); Calcium 8.9 mg/dL (8.6-10.3); Carbon Dioxide 32 mEq/L (23-29); Chloride 102 mEq/L (98-107); Glucose 372 mg/dL (70-105); Osmolality,Calculated 313 (280-300); Potassium 4.9 mEq/L (3.5-5.1); Sodium 138 mEq/L (136-145); eGFR For African Americans > 60 (> 60); eGFR For Non-African Americans 50 (> 60)
[2020-06-15] MEDS: Furosemide 40 MG TABLET PO SCH ×2 (08:52→16:50)
[2020-06-15] MEDS: *HR* Amiodarone 200 MG TABLET PO SCH ×2 (08:52→20:29)
[2020-06-15] MEDS: BuPROPion XL (24 HR) 150 MG TABLET PO SCH (08:52)
[2020-06-15] MEDS: lisinopriL 10 MG TABLET PO SCH (08:52)
[2020-06-15] MEDS: Metoprolol XL (24 HR) Succ 50 MG TAB.ER.24H PO SCH ×2 (08:52→20:29)
[2020-06-15] MEDS: Spironolactone 25 MG TABLET PO SCH (08:52)
[2020-06-15] MEDS: (Buprenorphine Hcl/Naloxone Hcl [Suboxone 8 Mg-2 Mg SL) SL SCH ×2 (08:53→20:29)
[2020-06-15] MEDS: Insulin LISPRO 300 UNITS/3 ML VIAL SUBQ SCH ×4 (09:02→20:30)
[2020-06-15] MEDS: Budesonide/Formoterol 80/4.5 1 PUFF INH IH SCH ×2 (11:35→21:54)
[2020-06-15] MEDS ORDERED: *HR* Warfarin 7.5 MG TABLET PO ONE (18:00)
[2020-06-15] MEDS: Acetaminophen 325 MG TABLET PO PRN (20:29)
[2020-06-15] MEDS: Insulin DETEMIR 100 UNIT/ML X5UNITS SUBQ SCH (20:29)
[2020-06-16] MEDS: Heparin 25,000UNIT/250ML 1/2NS 25,000 UNIT/250 ML IV.SOLN IVC SCH ×3 (00:14→12:22)
[2020-06-16] MEDS: Levalbuterol Neb 1.25 MG/3 ML IH SCH ×2 (03:27→11:02)
[2020-06-16 04:16] LABS: Basophils % 0.1 %; Hematocrit 33.7 % (35.3-44.9); Hemoglobin 10.4 g/dL (11.5-15.4); Immature Granulocytes % 0.3 % (0-4); Lymphocytes # 0.9 K/mcL (0.6-4.6); Lymphocytes % 8.5 %; Mean Corpuscular HGB Conc 30.9 g/dL (31.6-35.5); Mean Corpuscular Hemoglobin 26.5 pg (28.0-33.3); Mean Corpuscular Volume 85.8 fL (83.0-100.0); Mean Platelet Volume 11.8 fL (9.4-12.4); Monocytes # 0.6 K/mcL (0.0-1.3); Monocytes % 5.2 %; Neutrophils # 9.5 K/mcL (1.6-8.9); Platelet Count 183 K/mcL (140-400); Red Blood Count 3.93 M/mcL (3.82-4.97); Red Cell Distribution Width 17.9 % (11.5-14.5); Segmented Neutrophils % 85.9 %; White Blood Count 11.1 K/mcL (4.3-11.1)
[2020-06-16 04:32] LABS: BUN/Creatinine Ratio 39 (6-26); Blood Urea Nitrogen 42 mg/dL (6-20); Calcium 8.9 mg/dL (8.6-10.3); Carbon Dioxide 33 mEq/L (23-29); Chloride 100 mEq/L (98-107); Glucose 365 mg/dL (70-105); Osmolality,Calculated 311 (280-300); Sodium 138 mEq/L (136-145); eGFR For African Americans > 60 (> 60); eGFR For Non-African Americans 54 (> 60)
[2020-06-16 04:58] LABS: Heparin anti-factor XA UFH 0.42 IU/mL (0.30-0.70); INR 1.2; Prothrombin Time 13.7 Seconds (9.4-12.1)
[2020-06-16] MEDS: MethylPREDNISolone 40 MG/ML VIAL IVP SCH (05:08)
[2020-06-16] MEDS: BuPROPion XL (24 HR) 150 MG TABLET PO SCH (07:43)
[2020-06-16] MEDS: *HR* Amiodarone 200 MG TABLET PO SCH (07:44)
[2020-06-16] MEDS: Metoprolol XL (24 HR) Succ 50 MG TAB.ER.24H PO SCH (07:45)
[2020-06-16] MEDS: Furosemide 40 MG TABLET PO SCH (07:45)
[2020-06-16] MEDS: Insulin LISPRO 300 UNITS/3 ML VIAL SUBQ SCH ×2 (07:45→11:06)
[2020-06-16] MEDS: lisinopriL 10 MG TABLET PO SCH (07:45)
[2020-06-16] MEDS: Spironolactone 25 MG TABLET PO SCH (07:45)
[2020-06-16] MEDS: (Buprenorphine Hcl/Naloxone Hcl [Suboxone 8 Mg-2 Mg SL) SL SCH (08:50)
[2020-06-16] MEDS: Budesonide/Formoterol 80/4.5 1 PUFF INH IH SCH (11:02)
[2020-06-16] MEDS ORDERED: Insulin LISPRO 300 UNITS/3 ML VIAL SUBQ ONE ×2 (11:38→13:09)
[2020-06-16 13:23] VITALS: BP 179/77
[2020-06-16] MEDS ORDERED: *HR* Warfarin 7.5 MG TABLET PO ONE (18:00)
== END 2020-06-16 17:44 | disposition home health service (06) | DRG 291 ==
LOC: 2ANU → SUATTDRO 23:54
PROVIDERS: ADMIT Internal Medicine; ATTEND Student in an Organized Health Care Education/Training Program

== ENCOUNTER 2020-09-04 19:07 | Inpatient (IN) ==
[2020-09-04 22:07] LABS: Magnesium 2.4 mg/dL (1.6-2.6)
[2020-09-04] MEDS ORDERED: Calcium Gluconate 1gm/50mL 1 GM/50 ML BAG IVPB ONE (22:27)
[2020-09-04] MEDS ORDERED: *HR* Dextrose 50 % in Water (Vial) 50 ML VIAL IVP ONE (22:30)
[2020-09-04] MEDS ORDERED: Insulin Human Regular 5 UNIT in 0.9 % Sodium Chloride 10 ML IV ONE (22:34)
[2020-09-04 22:55] LABS: Adenovirus Not Detected (Not Detect); Bordetella Pertussis Not Detected (Not Detect); Chlamydophila pneumoniae Not Detected (Not Detect); Coronavirus 229E Not Detected (Not Detect); Coronavirus HKU1 Not Detected (Not Detect); Coronavirus NL63 Not Detected (Not Detect); Coronavirus OC43 Not Detected (Not Detect); Human Metapneumovirus Not Detected (Not Detect); Human Rhinovirus/Enterovirus Not Detected (Not Detect); Influenza A Subtype 2009 H1 Not Detected (Not Detect); Influenza B Not Detected (Not Detect); Mycoplasma pneumoniae Not Detected (Not Detect); Parainfluenza Virus 1 Not Detected (Not Detect); Parainfluenza Virus 2 Not Detected (Not Detect); Parainfluenza Virus 3 Not Detected (Not Detect); Parainfluenza Virus 4 Not Detected (Not Detect); Respiratory Syncytial Virus Not Detected (Not Detect); SARS-CoV-2 Not Detected (Not Detect)
[2020-09-05] MEDS ORDERED: 0.9 % Sodium Chloride 500 ML IVC ONE (03:35)
[2020-09-05] MEDS ORDERED: SODIUM ZIRCONIUM CYCLOSILICATE 5 GM POWD.PACK PO ONE (03:35)
[2020-09-05] MEDS ORDERED: *HR* Dextrose 50 % in Water (Vial) 50 ML VIAL IVP ONE (03:40)
[2020-09-05] MEDS ORDERED: Calcium Gluconate 1gm/50mL 1 GM/50 ML BAG IVPB ONE (03:41)
[2020-09-05 04:44] LABS: Calcium 9.1 mg/dL (8.6-10.3); Potassium 6.1 mEq/L (3.5-5.1)
[2020-09-05] MEDS ORDERED: Insulin Human Regular 10 UNIT in 0.9 % Sodium Chloride 10 ML IV ONE (04:53)
[2020-09-05] MEDS: SODIUM ZIRCONIUM CYCLOSILICATE 5 GM POWD.PACK PO SCH (05:17)
[2020-09-05] MEDS ORDERED: Naloxone 0.4 MG/ML INJ IVP PRN (05:52)
[2020-09-05] MEDS ORDERED: Acetaminophen 325 MG TABLET PO PRN (05:52)
[2020-09-05] MEDS ORDERED: *HR* Heparin 5,000 UNIT/ML VIAL SQ SCH (06:15)
[2020-09-05] MEDS ORDERED: Dextrose Gel 15 GM/37.5 ML TUBE PO PRN ×2 (06:56)
[2020-09-05] MEDS ORDERED: *HR* Dextrose 50 % in Water (Vial) 50 ML VIAL IVP PRN (06:56)
[2020-09-05] MEDS ORDERED: D5% in Water 1,000 ML IVC PRN (06:56)
[2020-09-05] MEDS: Insulin LISPRO 300 UNITS/3 ML VIAL SUBQ SCH ×3 (08:25→16:51)
[2020-09-05 09:15] LABS: Calcium 9.1 mg/dL (8.6-10.3)
[2020-09-05] MEDS ORDERED: Budesonide/Formoterol 80/4.5 1 PUFF INH IH PRN (12:53)
[2020-09-05] MEDS: 0.9 % Sodium Chloride 1,000 ML IVC SCH ×2 (13:08→20:14)
[2020-09-05 14:14] LABS: INR 1.4; Prothrombin Time 16.3 Seconds (9.4-12.1)
[2020-09-05 15:31] LABS: Potassium 5.9 mEq/L (3.5-5.1)
[2020-09-05 16:57] LABS: Bilirubin,Urine Negative (Negative); Blood,Urine Negative (Negative); Clarity,Urine Clear (Clear); Color,Urine Colorless (Yellow); Glucose,Urine (UA) 100 mg/dL (Normal); Ketones,Urine Negative (Negative); Leukocyte Esterase,Urine Negative (Negative); Nitrite,Urine Negative (Negative); Protein,Urine 70 mg/dL (Neg-Trace); RBC,Urine 0-3 per hpf (0-3); Specific Gravity,Urine 1.015 (1.010-1.025); Squamous Epithelial Cell,Urine Few per hpf (None-Few); Urobilinogen,Urine Normal (Normal); WBC,Urine 0-3 per hpf (0-3)
[2020-09-05 17:10] LABS: Sodium, Urine 91.9 mEq/L
[2020-09-05] MEDS ORDERED: *HR* Warfarin 2 MG TABLET PO ONE (18:00)
[2020-09-05] MEDS ORDERED: Warfarin perPT PO PRN (18:00)
[2020-09-05] MEDS ORDERED: *HR* Warfarin 5 MG TABLET PO ONE (18:00)
[2020-09-05] MEDS: cloNIDine HCL 0.1 MG TABLET PO SCH (20:15)
[2020-09-05] MEDS: *HR* Buprenorphine HCl 8 MG TAB.SUBL SL SCH (20:15)
[2020-09-06 01:30] LABS: Hematocrit 33.9 % (35.3-44.9); Mean Corpuscular HGB Conc 32.4 g/dL (31.6-35.5); Mean Corpuscular Hemoglobin 27.5 pg (28.0-33.3); Mean Corpuscular Volume 84.8 fL (83.0-100.0); Mean Platelet Volume 9.8 fL (9.4-12.4); Platelet Count 180 K/mcL (140-400); White Blood Count 6.6 K/mcL (4.3-11.1)
[2020-09-06 01:42] LABS: INR 1.3; Prothrombin Time 14.8 Seconds (9.4-12.1)
[2020-09-06 01:54] LABS: Calcium 8.4 mg/dL (8.6-10.3); Potassium 5.5 mEq/L (3.5-5.1)
[2020-09-06] MEDS: BuPROPion XL (24 HR) 150 MG TABLET PO SCH (08:36)
[2020-09-06] MEDS: amLODIPine 5 MG TABLET PO SCH (08:36)
[2020-09-06] MEDS: *HR* Buprenorphine HCl 8 MG TAB.SUBL SL SCH ×2 (08:36→20:58)
[2020-09-06] MEDS: SODIUM ZIRCONIUM CYCLOSILICATE 5 GM POWD.PACK PO SCH (08:36)
[2020-09-06] MEDS: cloNIDine HCL 0.1 MG TABLET PO SCH ×2 (08:37→20:58)
[2020-09-06] MEDS: Insulin LISPRO 300 UNITS/3 ML VIAL SUBQ SCH ×3 (08:38→17:33)
[2020-09-06] MEDS ORDERED: *HR* Warfarin 7.5 MG TABLET PO ONE (18:00)
[2020-09-07 02:39] LABS: INR 1.3; Prothrombin Time 14.7 Seconds (9.4-12.1)
[2020-09-07 02:47] LABS: BUN/Creatinine Ratio 32 (6-26); Blood Urea Nitrogen 36 mg/dL (6-20); Calcium 8.3 mg/dL (8.6-10.3); Carbon Dioxide 21 mEq/L (23-29); Chloride 112 mEq/L (98-107); Glucose 153 mg/dL (70-105); Magnesium 1.5 mg/dL (1.6-2.6); Osmolality,Calculated 297 (280-300); Phosphorous 3.1 mg/dL (2.7-4.5); Potassium 4.8 mEq/L (3.5-5.1); Sodium 138 mEq/L (136-145); eGFR For African Americans > 60 (> 60); eGFR For Non-African Americans 51 (> 60)
[2020-09-07 06:31] VITALS: BP 162/74
[2020-09-07] MEDS: BuPROPion XL (24 HR) 150 MG TABLET PO SCH (07:37)
[2020-09-07] MEDS: amLODIPine 5 MG TABLET PO SCH (07:37)
[2020-09-07] MEDS: cloNIDine HCL 0.1 MG TABLET PO SCH (07:37)
[2020-09-07] MEDS: Insulin LISPRO 300 UNITS/3 ML VIAL SUBQ SCH (07:38)
[2020-09-07] MEDS: *HR* Buprenorphine HCl 8 MG TAB.SUBL SL SCH (07:41)
[2020-09-07] MEDS ORDERED: Magnesium Oxide 400 MG TABLET PO ONE (08:17)
[2020-09-07] MEDS ORDERED: SODIUM ZIRCONIUM CYCLOSILICATE 5 GM POWD.PACK PO SCH (09:00)
[2020-09-07] MEDS ORDERED: Aspirin 81 MG TAB.CHEW PO SCH (09:00)
[2020-09-07] MEDS ORDERED: Metoprolol XL (24 HR) Succ 50 MG TAB.ER.24H PO SCH (09:00)
[2020-09-07] MEDS ORDERED: polyethylene glycoL 3350 17 GM POWD.PACK PO SCH (09:00)
[2020-09-07] MEDS ORDERED: *HR* Warfarin 7.5 MG TABLET PO ONE (18:00)
== END 2020-09-07 13:06 | disposition home or self-care (01) | DRG 683 ==
LOC: 2ANU 19:07 → EMEROOARM 19:07 → SUATTDRO 09-05 04:52 → 2ANU 09-05 05:56
PROVIDERS: ADMIT Internal Medicine; ATTEND Internal Medicine